=== PATIENT | male | born 1935 | race Caucasian/White ===

== ENCOUNTER → 2016-04-18 | Outpatient (CLI) | payer MEDICARE, OTHER ==
[2016-04-19 14:16] LABS: PSA TOTAL 11.5 ng/mL (0.0-4.0)
== END ==
LOC: M SMT 11:34
PROVIDERS: ATTEND Specialist
DX: R97.20 Elevated prostate specific antigen [PSA] (principal)
CPT/HCPCS: 36415; 84154; G0463

== ENCOUNTER → 2016-05-10 | Outpatient (CLI) | payer MEDICARE, OTHER ==
--- NOTE | 2016-05-10 11:22 | REP ---
Prostate sonography: History: Elevated PSA Sonographic findings: Trans rectal prostate sonography demonstrates unremarkable seminal vesicles. Prostate gland is heterogeneously enlarged with calcifications and cystic changes noted. Right-sided nodules are seen measuring 1.1, 1.1, and 0.9 cm. Left sided nodules are seen measuring 0.5, 1.0, and 0.6 cm. Glandular dimensions are measured at 4.9 x 3.5 x 5.4 cm with a calculated glandular volume of 48.4 ml. Transrectal sonographic guidance provided to Dr. Saavedra who performed trans rectal ultrasound guided needle biopsy procedure . Signed by Hadley Bundy MD 05/10/2016 11:14 A
== END ==
LOC: M SMT PRO 09:08
PROVIDERS: ATTEND Nurse Practitioner Women's Health
DX: C61 Malignant neoplasm of prostate (principal)
CPT/HCPCS: 55700; 76872; 76942; G0416

== ENCOUNTER → 2016-05-22 | Outpatient (CLI) | payer MEDICARE, OTHER ==
--- NOTE | 2016-05-22 09:57 | REP ---
Clinical: Prostate cancer. Preoperative assessment . Comparison: 07/16/2013 . Technique: PA and lateral. Findings: The mediastinum and cardiac silhouette are normal. The lung hannah are clear and without acute consolidation, effusion, or pneumothorax. The skeletal structures are intact and normal. Impression: 1. No acute cardiopulmonary process. Signed by Jamison Meléndez MD 05/22/2016 09:49 A
[2016-05-22 13:46] LABS: ANION GAP 4 MEQ/L (8-16); BLOOD UREA NITROGEN 21 MG/DL (7-18); CALCIUM LEVEL 10.1 MG/DL (8.8-10.2); CARBON DIOXIDE LEVEL 30 MEQ/L (21-32); CHLORIDE LEVEL 107 MEQ/L (98-107); CREATININE FOR GFR 0.93 MG/DL (0.70-1.30); GLOMERULAR FILTRATION RATE > 60.0 (>35); GLUCOSE, FASTING 107 MG/DL (83-110); POTASSIUM SERUM 4.1 MEQ/L (3.5-5.1); SODIUM LEVEL 141 MEQ/L (136-145)
--- NOTE | 2016-05-22 17:44 | REP ---
WHOLE-BODY BONE SCAN: 05/22/2016. Comparison: Chest x-ray 05/22/2016, CT abdomen and pelvis 01/19/2016. Clinical history: Prostate carcinoma. Findings: The patient received 22 mCi technetium 99m - MDP via an IV. Anterior and posterior whole body delayed, oblique anterior and posterior images of the pelvis and chest along with lateral views of the calvarium in the cervical region along with lateral knees and feet. There is a levoconvex curve upper thoracic spine. There are degenerative changes of the cervical and mid and lower thoracic and the lower lumbar spine with increased uptake in the left pedicle region of L4, although there was no sclerotic or destructive lesion in the L4 pedicle on CT. The SI joints were symmetric. Calvarium shows a small focus of activity at the vertex bilaterally on the anterior image of the calvarium and also seen on the lateral images over the parietal vertex suggesting some dural calcification or uptake. There is symmetric increased uptake at the glenohumeral joints, AC joints, sternoclavicular joints, anterior 1st ribs all in a symmetric fashion. Posterior elements of the thoracic and lower lumbar spine show some uptake as do hips and SI joints, knees and mid feet on both sides. I do not see abnormal long bone uptake. The paranasal sinuses show only minimal increased uptake as does the alveolar ridge of the mandible suggesting some sinus and dental disease. Impression: 1. Pattern of uptake consistent with degenerative changes. I do not see compelling scintigraphic evidence for bony metastatic disease. Signed by Myles Menard MD 05/22/2016 08:25 P
== END ==
LOC: M RAD 09:24 → M LAB 09:24
PROVIDERS: ATTEND Urology
DX: C61 Malignant neoplasm of prostate (principal)
CPT/HCPCS: 36415; 71020; 78306; 80048; A9503

== ENCOUNTER → 2016-05-24 | Outpatient (CLI) | payer MEDICARE, OTHER ==
[~2016-05-24] MED LIST: ISOVUE-370 76% 100ML VIAL (Q9967) As Ordered ONE
--- NOTE | 2016-05-24 18:10 | REP ---
Clinical: History of prostate cancer for follow up. Technique: Axial contrast enhanced images from the lung bases to the pubic symphysis using 100 ml Isovue 370 intravenous contrast material with precontrast and delayed images of the abdomen as well as coronal and sagittal re-formations. Comparison: 01/19/2016, 08/08/2008. Findings: Lung bases demonstrate chronic bibasilar fibroatelectatic changes. Visualized heart and pericardium stable and without pericardial effusion or cardiomegaly. Fatty infiltration of the liver is appreciated without focal hepatic lesion. Spleen demonstrates 4.6 cm and 1.9 cm hyperenhancing cavernous hemangiomas. The patient is status post cholecystectomy. Pancreas, bilateral adrenal glands and kidneys are relatively normal / stable. Small bilateral renal cysts noted along with 2 mm nonobstructing right renal calculus and no evidence for hydronephrosis. The enteric system is without obstruction or acute inflammatory process. Pelvis demonstrates normal bladder prostate gland is heterogeneous and mildly enlarged measuring up to 5.4 cm transverse diameter and essentially unchanged from 2016. No ascites. No free air. No intraperitoneal or retroperitoneal adenopathy. Surrounding musculoskeletal structures demonstrate age-related degenerative changes without focal osseous abnormality. Impression: 1. 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 2. A 2 mm nonobstructing right renal calculus and small bilateral renal cysts. 3. Heterogeneous mildly enlarged prostate gland unchanged. 4. No ascites, adenopathy, or abdominopelvic mass lesion. 5. 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 Signed by Jamison Meléndez MD 05/24/2016 06:01 P
== END ==
LOC: M RAD 16:15
PROVIDERS: ATTEND Urology
DX: C61 Malignant neoplasm of prostate (principal); D18.09 Hemangioma of other sites; N20.0 Calculus of kidney; N28.1 Cyst of kidney, acquired; N40.0 Benign prostatic hyperplasia without lower urinary tract symptoms; J98.4 Other disorders of lung
CPT/HCPCS: 74178; Q9967

== ENCOUNTER → 2016-06-12 | Outpatient (CLI) | payer MEDICARE, OTHER | LOC: M WUC 12:59 | PROVIDERS: ATTEND Urology | DX: C61 Malignant neoplasm of prostate (principal) ==

== ENCOUNTER → 2016-06-27 | Outpatient (CLI) | payer MEDICARE, OTHER ==
--- NOTE | 2016-07-03 09:51 | RADONC ---
RADIATION ONCOLOGY CONSULTATION NOTE DATE: 06/27/2016 CHART NUMBER: [id number]. DIAGNOSIS: Prostate cancer. STAGE: IIB, [id number] ECOG PERFORMANCE STATUS: 0 CONSULTATION NOTE: Mr. 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 HISTORY OF PRESENT ILLNESS: The patient was in his usual state of health but was found to have a rising PSA level which reached 11.5 on 04/18/2016. On 05/10/2016 the patient underwent prostatic needle biopsy and pathology revealed a Euclid score 9 (4-5) adenocarcinoma of prostate involving almost every core sampled. He initiated his androgen deprivation therapy with a shot of Lupron. He is now presenting for consideration of definitive external beam radiation therapy with IMRT/IGRT. PAST MEDICAL HISTORY: The patient's past medical history is positive for diabetes and hypothyroidism. He has high triglycerides as well. ALLERGIES: The patient is allergic to LIPITOR and NIACIN. SOCIAL HISTORY: The patient quit smoking 25 years ago. He had smoked one pack of cigarettes per day for 15 years. He does not abuse alcohol. FAMILY HISTORY: The patient's family history is positive for a sister with bone cancer and another sister with breast cancer. REVIEW OF SYSTEMS: The patient's review of systems is positive for some hearing loss, occasional shortness of breath, difficulty chewing, anxiety and weight loss. He has some weakness in his arms and legs as well as some decreased energy. He has occasional constipation as well. He denies nausea, vomiting, fevers, chills, night sweats, diplopia, headaches, chest pain or neurological problems. PHYSICAL EXAMINATION: The patient is a well-developed, well-nourished male in no acute distress. HEENT exam is normocephalic, atraumatic. Extraocular movements are intact. There is no palpable cervical, supraclavicular, infraclavicular, axillary, or inguinal lymphadenopathy present. Lungs are clear to auscultation and percussion. Heart has a regular rate and rhythm. Abdomen is benign with no hepatosplenomegaly, masses, or tenderness. Rectal examination reveals a normal anal sphincter tone. His prostate is smooth with no evidence of nodularity. Skeletal examination reveals no tenderness to pressure or percussion of the bony skeleton. Extremities reveal no clubbing, cyanosis, or edema. Neurologic exam is grossly intact as is the remainder of the physical examination. MEDICAL NECESSITY: IMRT/IGRT is clinically indicated for the highly conformal dose planning required. The target volume is in close proximity to critical structures, such as the rectum, bladder, small bowel, and femoral heads. The volume of interest must be covered with narrow margins to adequately protect immediately adjacent structures. The plan requires interpretation of complex testing such as CT localization. As noted above, special planning (IMRT) and localizing (IGRT) is required and essential to maximally protect sensitive normal tissue structures which cannot be accomplished using conventional 3-dimensional planning. ASSESSMENT: Clearly, Mr. Sheffield is a candidate for definitive external beam radiation therapy with IMRT/IGRT and I have so informed him. I have discussed with the patient in detail the potential benefits as well as possible acute and chronic sequelae of external beam radiation therapy. We have discussed the logistics of treatment planning, simulation and subsequent fractionated daily radiation treatments. In light of the aggressive nature of his disease, we will be treating his lymph nodes as well. This will bring the dose to the small bowel higher. Therefore, IMRT is needed to maintain all structures, especially the small bowel within their tolerance limits. Image guided radiation will be needed on a daily basis as well to maintain the high dose levels needed to control this disease which are within close proximity to critical structures such as the bladder, rectum, and small bowel, as well as the femoral heads. I have scheduled the patient for the next available simulation slot following placement of his fiducial markers. Radiation treatments will follow. Thank you for allowing us to participate in the care of this very pleasant gentleman. If I could be of any further assistance or provide you with any information, please free to contact me at any time. cc: Juancarlos Couch Jr, MD Alejandro Rodriguez, MD
== END ==
LOC: M ONCR 09:14
PROVIDERS: ATTEND Radiology Radiation Oncology
DX: C61 Malignant neoplasm of prostate (principal)

== ENCOUNTER → 2016-07-05 | Outpatient (CLI) | payer MEDICARE, OTHER ==
--- NOTE | 2016-07-05 17:31 | REP ---
TRANSRECTAL PROSTATE ULTRASOUND GUIDANCE FOR FIDUCIARY MARKER PLACEMENT: Transrectal ultrasound guidance was provided for Dr. Saavedra who placed 6 fiduciary markers in the region of the prostate. Signed by Jordan Mascorro MD 07/05/2016 05:41 P
== END ==
LOC: M SMT 09:43
PROVIDERS: ATTEND Urology
DX: C61 Malignant neoplasm of prostate (principal)
CPT/HCPCS: 55876; 76872; A4648

== ENCOUNTER 2016-07-23 10:40 | Outpatient (RCR) | payer MEDICARE, OTHER | END 2016-07-28 | LOC: M ONCR 10:40 | PROVIDERS: ATTEND Radiology Radiation Oncology | DX: C61 Malignant neoplasm of prostate (principal) ==

== ENCOUNTER → 2016-07-23 | Outpatient (CLI) | payer MEDICARE, OTHER ==
[2016-07-23 09:24] LABS: MEAN CORPUSCULAR HEMOGLOBIN 32.4 pg (27.0-33.0); MEAN CORPUSCULAR HGB CONC 36.2 g/dl (32.0-36.5); MEAN CORPUSCULAR VOLUME 89.5 fl (80.0-96.0); RED CELL DISTRIBUTION WIDTH 14.9 % (11.5-14.5); WHITE BLOOD COUNT 6.4 K/mm3 (4.0-10.0)
== END ==
LOC: M RAD 08:31
PROVIDERS: ATTEND Radiology Radiation Oncology
DX: C61 Malignant neoplasm of prostate (principal)

== ENCOUNTER 2016-07-29 09:20 | Outpatient (RCR) | payer MEDICARE, OTHER ==
--- NOTE | 2016-08-06 08:23 | RADONC ---
RADIATION ONCOLOGY PROGRESS NOTE DATE: 08/05/2016 CHART NUMBER: [id number] Mr. Sheffield is presently at a dose of 540 cGy to his prostate and is tolerating treatments quite well at this point with no complaints related to his radiation therapy. He is having no urinary or bowel difficulties and no bone pain. The patient's review of systems is noncontributory. He denies nausea, vomiting, fevers, chills, night sweats, diplopia, headaches, anxiety or depression, anorexia, weight loss, visual disturbances, chest pain, urinary or bowel difficulties, bone pain, or neurological problems. PHYSICAL EXAMINATION: The patient's skin is in good condition with no evidence of radiation change present. There is no moist or dry desquamation. The remainder of his physical exam remains unchanged. Mr. Sheffield is tolerating treatments quite well and radiation will continue as scheduled.
--- NOTE | 2016-08-13 10:12 | RADONC ---
RADIATION ONCOLOGY PROGRESS NOTE DATE: 08/12/2016 CHART NUMBER: [id number] Mr. Sheffield is presently a dose of 1440 cGy to his prostate and is tolerating treatments quite well at this point with no significant difficulties related to his radiation therapy. The patient reports that he initially had constipation the first several days of treatment, but then it went into diarrhea. He described four bowel movements which were watery today. REVIEW OF SYSTEMS: The patient's review of systems is positive for loose bowel movements, but is otherwise noncontributory. He denies nausea, vomiting, fevers, chills, night sweats, diplopia, headaches, anxiety or depression, anorexia, weight loss, visual disturbances, chest pain, urinary or bowel difficulties, bone pain or neurological problems. PHYSICAL EXAMINATION: The patient's skin is in good condition with no evidence of radiation change present. There is no moist or dry desquamation. The remainder of his physical exam remains unchanged. Mr. Sheffield is tolerating treatments quite well and radiation will continue as scheduled.
--- NOTE | 2016-08-20 07:51 | RADONC ---
RADIATION ONCOLOGY PROGRESS NOTE DATE: 08/19/2016 CHART NUMBER: [id number] Mr. Sheffield is presently at a dose of 2340 cG6 to his prostate and is tolerating treatments quite well at this point with no significant difficulties related to his radiation therapy. He is having no urinary or bowel difficulties other than some loose bowel movements. He has no bone pain. REVIEW OF SYSTEMS: The patient's review of systems is noncontributory. Denies nausea, vomiting, fevers, chills, night sweats, diplopia, headaches, anxiety or depression, anorexia, weight loss, visual disturbances, chest pain, urinary or bowel difficulties, bone pain, or neurological problems. PHYSICAL EXAMINATION: The patient's skin is in good condition with no evidence of radiation change present. The remainder of his physical exam remains unchanged as well. Mr. Sheffield is tolerating treatments quite well and radiation will continue as scheduled.
--- NOTE | 2016-08-28 08:03 | RADONC ---
RADIATION ONCOLOGY PROGRESS NOTE DATE: 08/27/2016 CHART NUMBER: [id number] Mr. Sheffield is presently at a dose of 3240 cGy to his prostate and is tolerating treatments quite well at this point with no complaints related to his radiation therapy. He is having no urinary or bowel difficulties. No bone pain. REVIEW OF SYSTEMS: The patient's review of systems is noncontributory. Denies nausea, vomiting, fevers, chills, night sweats, diplopia, headaches, anxiety or depression, anorexia, weight loss, visual disturbances, chest pain, urinary or bowel difficulties, bone pain, or neurological problems. PHYSICAL EXAMINATION: The patient's skin is in good condition with no evidence of radiation change present. There is no moist or dry desquamation. The remainder of his physical exam remains unchanged. Mr. Sheffield is tolerating treatments quite well and radiation will continue as scheduled.
== END 2016-08-28 ==
LOC: M ONCR 09:20
PROVIDERS: ATTEND Radiology Radiation Oncology
DX: C61 Malignant neoplasm of prostate (principal)

== ENCOUNTER → 2016-08-16 | Outpatient (REF) | payer MEDICARE, OTHER ==
[2016-08-16 19:48] LABS: FOLATE 7.8 NG/ML
== END ==
LOC: M LAB REF 17:26
PROVIDERS: ATTEND Internal Medicine
DX: D64.9 Anemia, unspecified (principal)

== ENCOUNTER 2016-08-29 09:49 | Outpatient (RCR) | payer MEDICARE, OTHER ==
--- NOTE | 2016-09-04 10:10 | RADONC ---
RADIATION ONCOLOGY PROGRESS NOTE: DATE: 09/03/2016 CHART NO: [id number] Mr. Sheffield is presently at a dose of 4140 cGy to his prostate and is tolerating treatments quite well at this point with no complaints related to his radiation therapy. He is having no urinary or bowel difficulties and no bone pain. REVIEW OF SYSTEMS: The patient's review of systems is noncontributory. Denies nausea, vomiting, fevers, chills, night sweats, diplopia, headaches, anxiety or depression, anorexia, weight loss, visual disturbances, chest pain, urinary or bowel difficulties, bone pain, or neurological problems. PHYSICAL EXAMINATION: The patient's skin is in good condition with no evidence of moist or dry desquamation. The remainder of his physical exam remains unchanged. Mr. Sheffield is tolerating his treatments quite well and radiation will continue as scheduled. MTDD
--- NOTE | 2016-09-10 07:43 | RADONC ---
RADIATION ONCOLOGY PROGRESS NOTE DATE: 09/09/2016 CHART NUMBER: [id number] Mr. Sheffield is thus far at a dose of 4680 cGy to his prostate. I received a phone call today from the patient saying he has watery diarrhea. He has no other symptoms related to his radiation therapy or disease. I had a lengthy discussion with this patient and he is going to take a break until . He has not been using any Imodium or been following his dietary restrictions I had given him in the past. He reports that when he took an Imodium the last time he became constipated. Once again, I have given him dietary instructions and have instructed him to try Imodium. I have also instructed him to use Gatorade for any electrolyte abnormalities. He reports that he has had four bowel movements today. We will continue to follow him and radiation should resume in a few days.
--- NOTE | 2016-09-17 08:22 | RADONC ---
RADIATION ONCOLOGY PROGRESS NOTE: DATE: 09/16/2016 CHART NUMBER: [id number]. PROGRESS NOTE: Mr. Sheffield is presently a dose of 4860 cGy to his prostate and is tolerating treatments quite well at this point with no complaints related to his radiation therapy. He is having no urinary or bowel difficulties and no bone pain. REVIEW OF SYSTEMS: The patient's review of systems is noncontributory. Denies nausea, vomiting, fevers, chills, night sweats, diplopia, headaches, anxiety or depression, anorexia, weight loss, visual disturbances, chest pain, urinary or bowel difficulties, bone pain, or neurological problems. PHYSICAL EXAMINATION: The patient's skin is in good condition with no evidence of radiation change present. There is no moist dry desquamation. The remainder of his physical exam remains unchanged. Mr. Sheffield is tolerating treatments quite well and radiation will continue as scheduled.
--- NOTE | 2016-09-24 08:00 | RADONC ---
RADIATION ONCOLOGY PROGRESS NOTE: DATE: 09/23/2016 CHART NUMBER: PROGRESS NOTE: Mr. Sheffield is presently at a dose of 5580 cGy to his prostate and is tolerating treatments quite well at this point with no significant difficulties related to his radiation therapy. He does report some continued loose bowel movements. REVIEW OF SYSTEMS: The patient's review of systems is positive for loose bowel movements but is otherwise noncontributory. Denies nausea, vomiting, fevers, chills, night sweats, diplopia, headaches, anxiety or depression, anorexia, weight loss, visual disturbances, chest pain, urinary or bowel difficulties, bone pain, or neurological problems. PHYSICAL EXAMINATION: The patient's skin is in good condition with no evidence of radiation change present. There is no moist or dry desquamation. The remainder of his physical exam remains unchanged. Mr. Sheffield is tolerating treatments quite well and radiation will continue as scheduled.
== END 2016-09-27 ==
LOC: M ONCR 09:49
PROVIDERS: ATTEND Radiology Radiation Oncology
DX: C61 Malignant neoplasm of prostate (principal)

== ENCOUNTER → 2016-09-25 | Outpatient (CLI) | payer MEDICARE, OTHER ==
[~2016-09-25] MED LIST changes: +DITR1TAB PO; +DITR5TAB PO; +FENO145T PO; +FLOM5CAP PO; -ISOVUE-370 76% 100ML VIAL (Q9967) As Ordered ONE; +JANU100T PO; +LEVO75TA4 PO; +METF500T4 PO; +NORC1TAB4 PO; +NORCOTAB PO; +PARO20TA3 PO; +RISP0.2516 PO; +ROSU10TA2 PO
--- NOTE | 2016-09-25 09:59 | REP ---
Clinical: Right-sided chest pain . Comparison: 11/19/2016 . Technique: PA and lateral. Findings: The mediastinum and cardiac silhouette are normal. The lung hannah demonstrate chronic stable changes without acute consolidation, effusion, or pneumothorax. The skeletal structures are intact and normal. Impression: 1. No acute cardiopulmonary process. Signed by Jamison Meléndez MD 09/25/2016 09:50 A
== END ==
LOC: M WUC 09:27
PROVIDERS: ATTEND Nurse Practitioner Family
DX: R07.9 Chest pain, unspecified (principal)

== ENCOUNTER 2016-10-02 08:33 | Outpatient (RCR) | payer MEDICARE, OTHER ==
--- NOTE | 2016-10-04 10:27 | RADONC ---
RADIATION ONCOLOGY DATE: 10/02/2016 CHART NUMBER: [id number] Mr. Sheffield is presently at a dose of 6480 cGy to his prostate and is tolerating treatments quite well at this point with no significant complaints make that related to his radiation therapy. He is having no significant urinary or bowel difficulties and no bone pain. REVIEW OF SYSTEMS: The patient's review of systems is noncontributory. He denies nausea, vomiting, fevers, chills, night sweats, diplopia, headaches, anxiety or depression, anorexia, weight loss, visual disturbances, chest pain, urinary or bowel difficulties, bone pain, or neurological problems. PHYSICAL EXAMINATION: The patient's skin is in good condition with no evidence of moist or dry desquamation. The remainder of his physical exam remains unchanged. Mr. Sheffield is tolerating treatments quite well and radiation will continue as scheduled.
--- NOTE | 2016-10-07 15:33 | RADONC ---
RADIATION ONCOLOGY PROGRESS NOTE DATE: 10/07/2016 CHART NUMBER: [id number] Mr. Sheffield is presently at a dose of 7020 cGy to his prostate and is tolerating treatments quite well at this point with no significant difficulties related to his radiation therapy. He is having no urinary problems. He reports some continued constipation. He is having no bone pain. The patient's review of systems is positive for some constipation but is otherwise noncontributory. He denies nausea, vomiting, fevers, chills, night sweats, diplopia, headaches, anxiety or depression, anorexia, weight loss, visual disturbances, chest pain, urinary or bowel difficulties, bone pain, or neurological problems. PHYSICAL EXAMINATION: The patient's skin is in good condition with no evidence of moist or dry desquamation. The remainder of his physical exam remains unchanged. Mr. Sheffield is tolerating treatments quite well and radiation will continue as scheduled.
--- NOTE | 2016-10-15 06:38 | RADONC ---
RADIATION ONCOLOGY PROGRESS NOTE: DATE: 10/14/2016 CHART NUMBER: [id number]. PROGRESS NOTE: Mr. Sheffield is presently a dose of 7840 cGy to his prostate and is tolerating treatments quite well at this point with no significant difficulties related to his radiation therapy other than his continued issue with a combination of diarrhea and constipation. Other than that the patient has no complaints related to his radiation therapy. REVIEW OF SYSTEMS: The patient's review of systems is positive for diarrhea and constipation but is otherwise noncontributory. Denies nausea, vomiting, fevers, chills, night sweats, diplopia, headaches, anxiety or depression, anorexia, weight loss, visual disturbances, chest pain, urinary or bowel difficulties, bone pain, or neurological problems. PHYSICAL EXAMINATION: The patient's skin is in good condition with no evidence of moist or dry desquamation. The remainder of his physical exam remains unchanged. Mr. Sheffield is tolerating treatments quite well and radiation will continue as scheduled.
[2016-10-15] MEDS ORDERED: PARO20TA3 PO (17:22)
[2016-10-15] MEDS ORDERED: LEVO75TA4 PO (17:22)
[2016-10-15] MEDS ORDERED: FENO145T PO (17:22)
[2016-10-15] MEDS ORDERED: JANU100T PO (17:22)
[2016-10-15] MEDS ORDERED: ROSU10TA2 PO (17:22)
[2016-10-15] MEDS ORDERED: METF500T4 PO (17:22)
[2016-10-15] MEDS ORDERED: FLOM5CAP PO (17:22)
[2016-10-15] MEDS ORDERED: NORCOTAB PO (22:18)
--- NOTE | 2016-10-16 10:17 | RADONC ---
RADIATION ONCOLOGY TREATMENT SUMMARY: DATE: 10/16/2016 CHART NUMBER: [id number] DIAGNOSIS: Prostate cancer. STAGE: II B, [id number] ECOG PERFORMANCE STATUS: 3 Mr. Sheffield is an 81-year-old white male with the diagnosis of what appears to be an aggressive Roberth score 9 (4-5), stage II B, [id number] adenocarcinoma of the prostate with a PSA level of 11.5 who presented for consideration of definitive external beam radiation therapy with IMRT/IGRT. We treated the patient to his prostate for a total dose of 7840 cGy delivered in 43 fractions of 180 cGy each over 74 elapsed days from 08/01/2016 through 10/14/2016. The patient's prostate was treated on a linear accelerator utilizing a 6 MV photon beam via IMRT/IGRT. We initially treated the prostate, seminal vesicles and first echelon of lymph nodes for a dose of 4500 cGy in 25 fractions of 180 cGy each. We subsequently coned down to the prostate and seminal vesicles for an additional 900 cGy bringing the seminal vesicles to a total dose of 5400 cGy. Following completion of that further radiation was given to the prostate, once again bringing it to a total dose of 7840 cGy. We initially planned on delivering an extra fraction of radiation to bring a total to the prostate 7920. Unfortunately, prior to the last day of treatment, the patient reports that he pulled a muscle in his back and was unable to come in for that final radiation treatment. He did present to the emergency room where a CT scan was done but showed no evidence of disease. He was sent home with pain medication. We spoke to the patient today and asked whether or not he would like that final treatment but said he did not think he was able to leave the house. In light of his overall condition, we have discontinued his final fraction at this point. The patient is scheduled see me again in routine followup in 1 month and will continue to be followed by his other physicians in the meantime. cc: Juancarlos Couch Jr, MD Alejandro Rodriguez, MD
[2016-10-16] MEDS ORDERED: NORC1TAB4 PO (22:15)
[2016-10-24] MEDS ORDERED: DITR5TAB PO (07:02)
[2016-10-24] MEDS ORDERED: RISP0.2516 PO (07:07)
[2016-10-24] MEDS ORDERED: DITR1TAB PO (07:07)
== END 2016-10-28 ==
LOC: M ONCR 08:33
PROVIDERS: ATTEND Radiology Radiation Oncology
DX: C61 Malignant neoplasm of prostate (principal)

== ENCOUNTER 2016-10-15 17:00 | Emergency (ER) | payer MEDICARE, OTHER ==
[~2016-10-15] VITALS: Ht 180.3 cm; Wt 97.7 kg
[2016-10-15] MEDS ORDERED: FENO145T PO (17:22)
[2016-10-15] MEDS ORDERED: PARO20TA3 PO (17:22)
[2016-10-15] MEDS ORDERED: LEVO75TA4 PO (17:22)
[2016-10-15] MEDS ORDERED: ROSU10TA2 PO (17:22)
[2016-10-15] MEDS ORDERED: FLOM5CAP PO (17:22)
[2016-10-15] MEDS ORDERED: JANU100T PO (17:22)
[2016-10-15] MEDS ORDERED: METF500T4 PO (17:22)
[2016-10-15 18:24] LABS: BASO % 0.5 % (0.0-1.0); EOS # 0.1 K/mm3 (0.0-0.50); EOS % 1.4 % (0.0-3.0); LARGE UNSTAINED CELL # 0.2 K/mm3 (0.0-0.4); LARGE UNSTAINED CELL % 1.9 % (0.0-4.0); LYMPH # 1.2 K/mm3 (1.5-4.5); LYMPH % 9.7 % (24.0-44.0); MEAN CORPUSCULAR HEMOGLOBIN 31.3 pg (27.0-33.0); MEAN CORPUSCULAR HGB CONC 36.1 g/dl (32.0-36.5); MEAN CORPUSCULAR VOLUME 86.6 fl (80.0-96.0); MONO # 0.6 K/mm3 (0.0-0.8); NEUTROPHILS % 80.5 % (36.0-66.0); PLATELET COUNT, AUTOMATED 203 k/mm3 (150-450); RED CELL DISTRIBUTION WIDTH 15.1 % (11.5-14.5)
[2016-10-15 18:34] LABS: ALBUMIN 4.2 GM/DL (3.2-5.2); ALBUMIN/GLOBULIN RATIO 1.31 (1.00-1.93); ALKALINE PHOSPHATASE 44 U/L (45-117); ALT/SGPT 36 U/L (12-78); ANION GAP 7 MEQ/L (8-16); AST/SGOT 35 U/L (15-37); BILIRUBIN,DIRECT 0.2 MG/DL (0.0-0.2); BILIRUBIN,TOTAL 0.8 MG/DL (0.2-1.0); BLOOD UREA NITROGEN 21 MG/DL (7-18); CALCIUM LEVEL 10.8 MG/DL (8.8-10.2); CARBON DIOXIDE LEVEL 25 MEQ/L (21-32); CHLORIDE LEVEL 101 MEQ/L (98-107); CREATININE FOR GFR 0.96 MG/DL (0.70-1.30); GLOMERULAR FILTRATION RATE > 60.0 (>35); GLUCOSE, FASTING 157 MG/DL (83-110); POTASSIUM SERUM 4.1 MEQ/L (3.5-5.1); SODIUM LEVEL 133 MEQ/L (136-145); TOTAL PROTEIN 7.4 GM/DL (6.4-8.2)
[2016-10-15] MEDS ORDERED: NS 500 ML IV ONE (19:45)
[2016-10-15] MEDS ORDERED: ISOVUE-370 76% 100ML VIAL (Q9967) As Ordered ONE (20:03)
--- NOTE | 2016-10-15 22:00 | REPUSA ---
CT of the abdomen and pelvis with contrast Clinical statement: Pain. Technique: Multiple axial CT images were obtained from the base of the lungs through the floor of the pelvis utilizing 5 mm axial slices after administration of nonionic intravenous contrast. Coronal an d sagittal reconstructions were also obtained. Comparison: 05/24/2016. Findings: Chest: The visualized lung bases demonstrate linear atelectasis bilaterally. Abdomen: The pancreas, kidneys, and adrenal glands are unremarkable. There is a peripherally enhancin g mass spleen measuring 4.6 x 4.1 cm, with central area of low attenuation. Several smaller hypodense enhancing lesions are seen within the spleen as well. There is mild diffuse low attenuation of the l iver. No focal hepatic masses are seen. The aorta is within normal limits. There is no evidence of ab dominal lymphadenopathy or ascites. Pelvis: The bowel is unremarkable, with no obstructive or inflammatory changes. The urinary bladder i s within normal limits. The prostate demonstrates metallic surgical seeds. There is no evidence of pe lvic lymphadenopathy or ascites. Bones: There are no suspicious osseous abnormalities seen. Impression: 1. No acute abnormality to explain the patient's pain. 2. No obstructive or inflammatory bowel changes. 3. Multiple enhancing masses within the spleen. These are stable since the prior study, and likely re present hemangiomas. Follow-up is recommended as clinically indicated. 4. Mild fatty infiltration of the liver. 5. Stable postsurgical changes within the prostate.
[2016-10-15] MEDS ORDERED: NORCOTAB PO (22:18)
[2016-10-15 22:23] VITALS: BP 162/95
[2016-10-15] MEDS ORDERED: NORCO, ANEXSIA 5/325MG TABLET (HYDROcodone/ACETAMINOPHEN) PO ONE (22:30)
[2016-10-16] MEDS ORDERED: NORC1TAB4 PO (22:15)
== END 2016-10-15 22:38 | disposition home or self-care (01) ==
LOC: M ED 17:00
DX: R10.31 Right lower quadrant pain (principal); K59.00 Constipation, unspecified; E11.9 Type 2 diabetes mellitus without complications; E78.5 Hyperlipidemia, unspecified; N40.0 Benign prostatic hyperplasia without lower urinary tract symptoms; E03.9 Hypothyroidism, unspecified; F41.9 Anxiety disorder, unspecified; R16.1 Splenomegaly, not elsewhere classified; K76.0 Fatty (change of) liver, not elsewhere classified; Z98.890 Other specified postprocedural states; Z87.891 Personal history of nicotine dependence; Z98.0 Intestinal bypass and anastomosis status
CPT/HCPCS: 36415; 74177; 80048; 80076; 81001; 83605; 83690; 85025; 87086; 99283; Q9967

== ENCOUNTER 2016-10-16 19:15 | Inpatient (IN) | payer MEDICARE, OTHER ==
[~2016-10-16] VITALS: Ht 170.2 cm; Wt 98.4 kg
[~2016-10-16 19:15] MED LIST changes: -DITR1TAB PO; -DITR5TAB PO; -NORC1TAB4 PO; -RISP0.2516 PO
[2016-10-16] MEDS: SENOKOT S TAB PO SCH (21:00)
[2016-10-16] MEDS: ROSUVASTATIN 10 MG TAB (CRESTOR) PO SCH (21:00)
[2016-10-16] MEDS ORDERED: NS 500 ML IV ONE ×2 (21:30→23:45)
[2016-10-16 21:58] LABS: ABG BASE EXCESS -1.9 (-2.0-2.0); ABG HCO3 22.3 MEQ/L (22.0-26.0); ABG PARTIAL PRESSURE CO2 36.3 mmHg (35.0-45.0); ABG PARTIAL PRESSURE O2 67.1 mmHg (75.0-100.0); ABG STANDARD HCO3 22.8 MEQ/L (22.0-26.0); ABG TOTAL CO2 23.4 MEQ/L (23.0-31.0); ABG pH (ARTERIAL) 7.406 UNITS (7.350-7.450)
[2016-10-16 22:11] LABS: BASO % 0.6 % (0.0-1.0); EOS # 0.1 K/mm3 (0.0-0.50); EOS % 1.2 % (0.0-3.0); LARGE UNSTAINED CELL # 0.2 K/mm3 (0.0-0.4); LARGE UNSTAINED CELL % 1.9 % (0.0-4.0); LYMPH # 0.7 K/mm3 (1.5-4.5); MEAN CORPUSCULAR HEMOGLOBIN 31.8 pg (27.0-33.0); MEAN CORPUSCULAR VOLUME 88.3 fl (80.0-96.0); MONO # 0.5 K/mm3 (0.0-0.8); MONO % 5.3 % (0.0-5.0); NEUTROPHILS # 7.3 K/mm3 (1.8-7.7); NEUTROPHILS % 82.9 % (36.0-66.0); PLATELET COUNT, AUTOMATED 171 k/mm3 (150-450); RED CELL DISTRIBUTION WIDTH 14.8 % (11.5-14.5); WHITE BLOOD COUNT 8.8 K/mm3 (4.0-10.0)
[2016-10-16] MEDS ORDERED: NORC1TAB4 PO (22:15)
[2016-10-16 22:25] LABS: OSMOLALITY SERUM 289 MOSM/KG (280-301)
[2016-10-16 22:32] LABS: ALBUMIN 4.2 GM/DL (3.2-5.2); ALKALINE PHOSPHATASE 45 U/L (45-117); ALT/SGPT 39 U/L (12-78); ANION GAP 9 MEQ/L (8-16); AST/SGOT 50 U/L (15-37); BILIRUBIN,DIRECT 0.3 MG/DL (0.0-0.2); BILIRUBIN,TOTAL 1.2 MG/DL (0.2-1.0); BLOOD UREA NITROGEN 21 MG/DL (7-18); CALCIUM LEVEL 10.6 MG/DL (8.8-10.2); CARBON DIOXIDE LEVEL 26 MEQ/L (21-32); CHLORIDE LEVEL 101 MEQ/L (98-107); CREATININE FOR GFR 1.01 MG/DL (0.70-1.30); GLOMERULAR FILTRATION RATE > 60.0 (>35); GLUCOSE, FASTING 122 MG/DL (83-110); POTASSIUM SERUM 3.9 MEQ/L (3.5-5.1); SODIUM LEVEL 136 MEQ/L (136-145); TOTAL PROTEIN 7.2 GM/DL (6.4-8.2)
--- NOTE | 2016-10-16 22:40 | REPUSA ---
CT of the head Clinical history: altered mental status. Technique: Multiple axial CT images were obtained through the head without administration of contrast . Findings: The ventricles and sulci are symmetric bilaterally. There is no evidence of acute hemorrhag e or infarct. There is no midline shift, mass effect, or extra-axial fluid collection. The osseous st ructures are unremarkable. The visualized paranasal sinuses and mastoid air cells are clear. Impression: Negative study.
[2016-10-16 23:56] LABS: T UPTAKE 34 % (33-40); THYROXINE (T4) 11.2 UG/DL (4.5-12.0)
[2016-10-17] MEDS ORDERED: LORazepam 2 MG/ML VIAL (J2060) IV STA (00:01)
[2016-10-17] MEDS ORDERED: NORCO, ANEXSIA 5/325MG TABLET (HYDROcodone/ACETAMINOPHEN) PO PRN (01:00)
[2016-10-17] MEDS ORDERED: ONDANSETRON 4 MG TAB (S0181) PO PRN (01:00)
[2016-10-17] MEDS ORDERED: GLUCAGON FOR INJ 1 MG VIAL (J1610) SC PRN (01:15)
[2016-10-17] MEDS ORDERED: GLUCOSE 4 GM CHEW TABLET PO PRN (01:15)
[2016-10-17] MEDS ORDERED: DEXTROSE 50% 50 ML SYRINGE IV PRN (01:15)
[2016-10-17] MEDS: NS 1,000 ML IV SCH ×3 (01:22→20:02)
[2016-10-17] MEDS ORDERED: METAL LOCK LOOP XX ONE (01:39)
[2016-10-17 02:55] VITALS: BP 128/84
--- NOTE | 2016-10-17 03:15 | HPEPDOC ---
General Date of Admission Oct 17, 2016 at 01:27 Primary Care Physician: Jr Couch Collins Other Providers Radiation Oncologist: Dr. Bain Urologist: Dr. Saavedra Attending Physician: RICHMOND MCCARTNEY MD Chief Complaint The patient is a 81-year-old male admitted with a reason for visit of Abdominal Pain. Source: Patient, Family Exam Limitations: No limitations History of Present Illness Mr. Sheffield has presented to the emergency department twice in 2 days for the same complaint. He states that he has been suffering from severe fatigue, he has not been able to get a good night sleep for months, but this has become significantly worse in the past few weeks. It is important to note that he was found to have prostate cancer just a few months ago, and he has been receiving radiation therapy for the past 6-7 weeks and he has received 43 of his 44 scheduled radiation treatments to the prostate. He states that the reason why he cannot sleep is because he has to wake up and urinate every hour or every other hour during the night, he has discussed the option of placing a catheter with his PCP, who told him that this was not a good idea given that the area was currently being irradiated. In addition to his fatigue and poor sleep, he states that he has fallen twice recently, once a few weeks ago, and once last night. He did not lose consciousness, he did not hit his head, and he just believes that he was tired and fatigued and fell down. He is now suffering from some intermittent abdominal pain in the lower right quadrant which is described as sharp and stabbing, it is not always present, it only occurs if he positions himself in a certain manner, and it is only just begun since he fell last night. He also states that he has been suffering from nausea for the past few days, as well as decreased oral intake, he has been unable to eat at all, and he has not been taking any of his medications as prescribed. He was given some pain pills last night in the ED which she was hoping would help him fall asleep , but he believes that made him groggy and perhaps contributed to the reason of his fall last night. Home Medications Scheduled Fenofibrate (Fenofibrate) 145 Mg Tab, 145 MG PO DAILY, (Reported) Levothyroxine Sodium (Synthroid) 75 Mcg Tab, 75 MCG PO DAILY, (Reported) Metformin Hydrochloride (Metformin HCl ER) 500 Mg Tab, 500 MG PO QPM, (Reported) HAD CT SCAN ON 10/15, DIDN'T TAKE METFORMIN ON 10/16 Paroxetine (Paroxetine HCl) 20 Mg Tab, 20 MG PO DAILY, (Reported) Rosuvastatin Calcium (Rosuvastatin Calcium) 10 Mg Tab, 10 MG PO QHS, (Reported) Sitagliptin Phosphate (Januvia) 100 Mg Tab, 100 MG PO DAILY, (Reported) Tamsulosin Hydrochloride (Flomax) 0.4 Mg Cap, 0.8 MG PO QPM, (Reported) UNSURE OF LAST DOSE, DIDN'T TAKE ON 10/16 Scheduled PRN Acetaminophen/Hydrocodone (Paxton 5-325 mg) 1 Tab Tab, 1 TAB PO Q6H PRN for PAIN, (Reported) JUST HAD RX SENT TO PHARMACY FROM HERE LAST NIGHT 10/15 Allergies Coded Allergies: Atorvastatin (Verified Allergy, Unknown, 10/17/16) Gemfibrozil (Verified Allergy, Unknown, 10/17/16) Niacin (Verified Allergy, Unknown, 10/17/16) Past Medical History Medical History Hypercholesterolemia Diabetes mellitus type 2 Prostate cancer, with recent irradiation Depression Hypothyroidism Surgical History Colonoscopy 2013 History of right hemicolectomy for non-endoscopic resection of adenoma with anastomosis Hernia repair He thinks he may have had a cholecystectomy as well Family History His father was at the age of 49 from suicide. His mother was at the age of 51 from hypertension and stroke. He has 3 sons, one son suffers from prostatitis, another suffers from Tourette's and schizoaffective disorder. 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 No pets. Review of Symptoms Constitutional: Reports: Malaise, Weakness, Fatigue, Denies: Chills, Fever, Night Sweats Eyes: Denies: Pain, Vision change ENT: Denies: Head Aches, Ear Pain, Dysphagia Skin: Denies: Rash, Lesions, Breakdown Pulmonary: Denies: Dyspnea, Cough Cardiovascular: Denies: Chest Pain, Palpitations, Orthopnea, Paroxysmal Noc. Dyspnea, Lt Headedness Gastrointestinal: Denies: Nausea, Vomiting, Abdominal Pain, Diarrhea Genitourinary: Reports: Frequency, Retention (he is unsure if he has retention , but he only urinates a small amount at a time), Denies: Dysuria, Incontinence, Hematuria Hematologic: Denies: Bruising, Bleeding Excessively Musculoskeletal: Reports: Back Pain, Spasms (in the right lower quadrant) Neurological: Denies: Numbness, Change in speech, Confusion Psych: Reports: Mood Normal, Denies: Depression, Memory Issues Physical Examination General Exam: Positive: Alert, Cooperative, No Acute Distress Eye Exam: Positive: Conjunctiva & lids normal, EOMI, Negative: Sclera icteric ENT Exam: Positive: Atraumatic, Mucous membr. moist/pink, Pharynx Normal Neck Exam: Positive: Supple, Negative: JVD, thyromegaly Chest Exam: Positive: Clear to auscultation, Normal air movement Heart Exam: Positive: Rate Normal, Regular Rhythm, Normal S1, Normal S2, Negative: Murmurs, Rubs Telemetry: Positive: No significant arrhythmia Abdomen Exam: Positive: Normal bowel sounds, Soft, Negative: Tenderness (specifically, there is no tenderness to deep palpation , he states that his abdominal pain is only when he gets up and moves around), Hepatospenomegaly Extremity Exam: Positive: Normal pulses, Negative: Clubbing, Cyanosis, Edema Skin Exam: Positive: Nl turgor and temperature, Negative: Breakdown, Lesion Neuro Exam: Positive: Normal Speech, Cranial Nerves 3-12 NL Psych Exam: Positive: Mental status NL, Mood NL, Oriented x 3 Vital Signs Vital Signs Date Time Temp Pulse Resp B/P (MAP) Pulse Ox O2 Delivery O2 Flow Rate FiO2 10/17/16 02:05 98.2 16 10/17/16 02:00 90 94 Nasal Cannula 10/17/16 01:34 149/84 (105) Laboratory Data Labs 24H Laboratory Tests 2 10/16/16 21:32: Blood Gas Bicarbonate Standard 22.8, Arterial Blood pH 7.406, Arterial Blood Partial Pressure CO2 36.3, Arterial Blood Partial Pressure O2 67.1L, Arterial Blood Total CO2 23.4, Arterial Blood HCO3 22.3, Arterial Blood Base Excess -1.9 , Arterial Blood Oxygen Saturation 92.2L 10/16/16 21:33: Bedside Glucose (Misc Panel) 132H 10/16/16 21:50: White Blood Count 8.8, Red Blood Count 4.59, Hemoglobin 14.6, Hematocrit 40.5L, Mean Corpuscular Volume 88.3, Mean Corpuscular Hemoglobin 31.8, Mean Corpuscular Hemoglobin Concent 36.0, Red Cell Distribution Width 14.8H, Platelet Count 171, Neutrophils (%) (Auto) 82.9H, Lymphocytes (%) (Auto) 8.0L, Monocytes (%) (Auto) 5.3H, Eosinophils (%) (Auto) 1.2, Basophils (%) (Auto) 0.6 , Neutrophils # (Auto) 7.3, Lymphocytes # (Auto) 0.7L, Monocytes # (Auto) 0.5, Eosinophils # (Auto) 0.1, Basophils # (Auto) 0.0, Large Unclassified Cells % 1.9 , Large Unclassified Cells # 0.2, Anion Gap 9, Glomerular Filtration Rate > 60.0 , Osmolality 289, Lactic Acid Level 1.0, Calcium Level 10.6H, Aspartate Amino Transf (AST/SGOT) 50H, Alanine Aminotransferase (ALT/SGPT) 39, Alkaline Phosphatase 45, Total Bilirubin 1.2H, Direct Bilirubin 0.3H, Ammonia 22, Total Creatine Kinase 920H, Creatine Kinase MB 19.5H, Creatine Kinase MB Relative Index 2.11, Troponin I < 0.02, C-Reactive Protein, Quantitative < 0.30, Total Protein 7.2, Albumin 4.2, Albumin/Globulin Ratio 1.40, Thyroid Stimulating Hormone (TSH) 4.020H, Free Thyroxine Index 3.8, Thyroxine (T4) 11.2, Triiodothyronine (T3) Uptake 34, Salicylates Level < 1.7L, Acetaminophen Level < 2.0L, Ethyl Alcohol Level < 0.003 CBC/BMP Laboratory Tests 10/16/16 21:50 Red Blood Count 4.59, Mean Corpuscular Volume 88.3, Mean Corpuscular Hemoglobin 31.8, Mean Corpuscular Hemoglobin Concent 36.0, Red Cell Distribution Width 14.8 H, Neutrophils (%) (Auto) 82.9 H, Lymphocytes (%) (Auto) 8.0 L, Monocytes ( %) (Auto) 5.3 H, Eosinophils (%) (Auto) 1.2, Basophils (%) (Auto) 0.6, Neutrophils # (Auto) 7.3, Lymphocytes # (Auto) 0.7 L, Monocytes # (Auto) 0.5, Eosinophils # (Auto) 0.1, Basophils # (Auto) 0.0 Problems (1) At risk for dehydration due to poor fluid intake Status: Acute (2) Prerenal azotemia Status: Acute (3) Weakness Status: Acute (4) Elevated CK Status: Acute (5) Fatigue Status: Acute (6) Frequency of urination Status: Acute (7) Abdominal pain Status: Acute (8) Prostate cancer Status: Chronic (9) Hypothyroidism Status: Chronic (10) Hypercholesterolemia Status: Chronic (11) Diabetes mellitus type 2 in obese Status: Chronic Plan / VTE VTE Prophylaxis Ordered?: Yes (Lovenox) Plan Plan The patient seems to be suffering from fatigue and malaise secondary to inability to sleep from frequent urination and suspected urinary retention associated with prostate cancer and radiation. I also suspect that his fatigue and malaise is further exacerbated by his inability to eat, and his constant nausea. He is receiving 1 L bolus of normal saline in the ED, we will continue to give him fluid rehydration as well. Zofran has been ordered for his nausea, he may have a consistent carbohydrate diet, but if he continues to be nauseated , perhaps she will be able to stomach at least and ensure with every meal. Her repeat total CK has been ordered for the morning, we will also cycle cardiac markers as well. Given that he has had a recent urinary radiation of the prostate, placing a Salmon does not seem like a good idea as tissue is likely friable in that area. His bladder does not appear particularly distended on CT of the abdomen with contrast which he had performed yesterday in the emergency department, therefore we will order a bladder scan at this time, and provide him with a bedside urinal. A urinalysis has been ordered. Just be safe, and MRI of the lumbar spine has been ordered given that his fall a few weeks ago did precede his current state of malaise and weakness, we just want to be safe and rule out any sort of metastases. Orthostatic vital signs have been ordered. We will also have physical therapy evaluate and treat him as necessary. GME ATTESTATION GME ATTESTATION My preceptor for this patient encounter was physically present in the building during the encounter and was fully available. As needed, all aspects of the patient interview, examination, medical decision making process, and medical care plan development were reviewed and approved by the preceptor. Preceptor is aware and concurs with the plan as stated in the body of this note and will attest to such by his/her cosignature. ATTENDING NOTE I have both independently examined this patient as well as reviewed the H&P. I have discussed in detail with the resident the findings and plan of treatment as documented in the residents note. I will continue to follow the patient and offer further guidance to the patients care as necessary during this hospital stay. ESTER Moya MD, DO Oct 17, 2016 03:15 RICHMOND MCCARTNEY MD Oct 17, 2016 18:40
--- NOTE | 2016-10-17 05:53 | ECGEPIP ---
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
[2016-10-17 06:00] VITALS: BP 132/85
[2016-10-17 06:08] LABS: MEAN CORPUSCULAR HEMOGLOBIN 31.5 pg (27.0-33.0); MEAN CORPUSCULAR HGB CONC 35.9 g/dl (32.0-36.5); MEAN CORPUSCULAR VOLUME 87.7 fl (80.0-96.0)
[2016-10-17 07:15] LABS: ANION GAP 4 MEQ/L (8-16); BLOOD UREA NITROGEN 18 MG/DL (7-18); CALCIUM LEVEL 9.7 MG/DL (8.8-10.2); CARBON DIOXIDE LEVEL 28 MEQ/L (21-32); CHLORIDE LEVEL 105 MEQ/L (98-107); CREATININE FOR GFR 0.89 MG/DL (0.70-1.30); GLOMERULAR FILTRATION RATE > 60.0 (>35); GLUCOSE, FASTING 111 MG/DL (83-110); POTASSIUM SERUM 3.7 MEQ/L (3.5-5.1); SODIUM LEVEL 137 MEQ/L (136-145)
--- NOTE | 2016-10-17 07:25 | REP ---
Chest, single PA view: Comparison is 09/25/2016. There is an incomplete inspiratory effort. Lung hannah are clear. Cardiac size is normal. The vinay, mediastinum, and bony thorax are unremarkable. Impression: There are no acute cardiopulmonary findings. There is an incomplete inspiratory effort. Signed by Jordan Ruvalcaba MD 10/17/2016 07:17 A
[2016-10-17] MEDS: HumaLOG INSULIN (NovoLOG) PER UNIT SC SCH ×4 (07:30→20:56)
[2016-10-17] MEDS ORDERED: oxyBUTYnin 5 MG TAB PO SCH (09:00)
[2016-10-17] MEDS: SENOKOT S TAB PO SCH ×2 (09:39→20:02)
[2016-10-17] MEDS: LEVOTHYROXINE 75MCG TABLET (0.075MG) PO SCH (09:40)
[2016-10-17] MEDS: PARoxetine 20 MG TAB PO SCH (09:45)
[2016-10-17] MEDS: FENOFIBRATE 145 MG TAB (TRICOR) PO SCH (09:46)
[2016-10-17] MEDS: ENOXAPARIN 40 MG/0.4 ML SYRINGE (J1650) SC SCH (09:46)
[2016-10-17] MEDS: SITagliptin 50 MG TAB (JANUVIA) PO SCH (09:46)
[2016-10-17] MEDS ORDERED: MORPHINE 2 MG/ML 1ML SYRINGE IV ONE (12:30)
[2016-10-17 14:00] VITALS: BP 133/88
--- NOTE | 2016-10-17 14:26 | REP ---
MR LUMBAR SPINE WITHOUT CONTRAST: HISTORY: Back pain. The examination is incomplete as only sagittal T1 and T2-weighted images were obtained. The images are markedly degraded by motion. Decreased signal intensity on T2-weighted images is present in the L4-5 and L5-S1 intervertebral discs. The discs are decreased in height. These findings are consistent with disc degeneration. There is no disc bulge or herniation at the L1-2 through L3-4 levels. A disc bulge is present at the L4-5 level. There are 6 mm of grade 1 spondylolisthesis of L4 on 5. There is at least mild compression of the thecal sac. A disc bulge is present at the L5-S1 level. There is minimal compression of the thecal sac. The conus medullaris is normal in appearance terminating at the level of the T12-L1 intervertebral disc. Normal signal intensity is present in the lumbar vertebral bodies. IMPRESSION: Limited examination demonstrating disc bulge and grade 1 spondylolisthesis at the L4-5 level and disc bulge at the L5-S1 level. An addendum will be added if the patient returns to complete the examination. Signed by Thang Bauman MD 10/17/2016 02:31 P
[2016-10-17] MEDS: oxyBUTYnin *DITROPAN XL* 5 MG TABCR PO SCH (20:02)
[2016-10-17] MEDS: ROSUVASTATIN 10 MG TAB (CRESTOR) PO SCH (20:02)
[2016-10-17] MEDS ORDERED: TAMSULOSIN 0.4 MG CAP PO SCH (21:00)
[2016-10-17 22:00] VITALS: BP 144/86
[2016-10-18 00:51] LABS: METHADONE URINE NEGATIVE (NEGATIVE)
[2016-10-18 06:00] VITALS: BP_SYST 141; BP_SYST 147; BP_SYST 148; BP_DIAS 101; BP_DIAS 74; BP_DIAS 99
[2016-10-18 06:23] LABS: MEAN CORPUSCULAR HEMOGLOBIN 30.9 pg (27.0-33.0); MEAN CORPUSCULAR HGB CONC 35.1 g/dl (32.0-36.5); MEAN CORPUSCULAR VOLUME 87.8 fl (80.0-96.0); RED CELL DISTRIBUTION WIDTH 14.5 % (11.5-14.5); WHITE BLOOD COUNT 5.8 K/mm3 (4.0-10.0)
[2016-10-18] MEDS: NS 1,000 ML IV SCH ×2 (06:39→17:08)
[2016-10-18 06:43] LABS: ANION GAP 6 MEQ/L (8-16); BLOOD UREA NITROGEN 15 MG/DL (7-18); CALCIUM LEVEL 9.6 MG/DL (8.8-10.2); CARBON DIOXIDE LEVEL 24 MEQ/L (21-32); CHLORIDE LEVEL 104 MEQ/L (98-107); CREATININE FOR GFR 0.73 MG/DL (0.70-1.30); GLOMERULAR FILTRATION RATE > 60.0 (>35); GLUCOSE, FASTING 116 MG/DL (83-110); POTASSIUM SERUM 3.5 MEQ/L (3.5-5.1); SODIUM LEVEL 134 MEQ/L (136-145)
[2016-10-18] MEDS: SENOKOT S TAB PO SCH ×2 (08:27→20:07)
[2016-10-18] MEDS: SITagliptin 50 MG TAB (JANUVIA) PO SCH (08:28)
[2016-10-18] MEDS: FENOFIBRATE 145 MG TAB (TRICOR) PO SCH (08:28)
[2016-10-18] MEDS: PARoxetine 20 MG TAB PO SCH (08:28)
[2016-10-18] MEDS: LEVOTHYROXINE 75MCG TABLET (0.075MG) PO SCH (08:28)
[2016-10-18] MEDS: ENOXAPARIN 40 MG/0.4 ML SYRINGE (J1650) SC SCH (08:29)
[2016-10-18] MEDS: HumaLOG INSULIN (NovoLOG) PER UNIT SC SCH ×4 (08:30→20:10)
[2016-10-18 14:00] VITALS: BP 136/60
--- NOTE | 2016-10-18 18:10 | IPN ---
DATE: 10/18/2016 SUBJECTIVE: The patient was seen and examined in the room today. The patient is alert and awake during the encounter; however, the patient shows some signs of confusion. The patient does not know the name of our hospital and does not know the year. However, the patient started to get some right answers after multiple redirection. Per patient, the patient still feels fatigued, but he would like to move around more even though his gait is not stable at this moment. He has very poor oral intake. His breakfast is laying in front of him, but he does not want to consume any oral diet. Per patient, the patient did have a good night's sleep yesterday, and he felt that good sleep may have benefited him. Yesterday, the patient had a scheduled MRI of the spine to rule out any possible malignancy, metastasis. The patient does have a history of prostate cancer. However, the patient continues with agitation and claustrophobia and the patient could not sustain the MRI scan, even though a side dose of pain medication was given to the patient to provide extra comfort, but the patient still cannot get through the MRI scan. When asked about what the patient would feel or doing when the scan occurred, the patient does not have a clear recollection of the event. OBJECTIVE: VITAL SIGNS: Temperature is 97.9, pulse is 85, respirations 18, blood pressure is 147/101, pulse oximetry is 93% on room air. GENERAL: No sign of acute distress. The patient is alert and awake but the patient is not oriented. HEENT: Normocephalic, atraumatic. Extraocular motor grossly intact. CARDIOVASCULAR: Positive S1, S2, regular rate. LUNGS: Clear to auscultation bilaterally. ABDOMEN: Obese. Nontender, nondistended. EXTREMITIES: No edema, no sign of cyanosis. LABORATORY DATA: WBC is 5.8, hemoglobin 12.5, hematocrit 35.7, platelet count is 156. Sodium 134, potassium 3.5, chloride 104, carbon dioxide 24, BUN 15, creatinine 0.73, GFR is greater than 60, fasting glucose 116, calcium is 9.6. ASSESSMENT AND PLAN: 1. Severe weakness with dehydration. The patient continues to have very poor oral intake. The patient is currently supported on intravenous (IV) fluids. The patient does have a long duration of poor sleep quality prior to admission due to frequent urinary incontinence. Will try to provide support to give the patient more rest. Hopefully, the patient's mental status shows improvement. CT of the head was performed on the night of admission and the result was negative. Result of the ammonia level is also negative, and the patient does not have any sign of acute infection. 2. Rhabdomyolysis, possibly due to previous multiple falls. The patient is on intravenous (IV) hydration. Continue to follow the levels. 3. Prostate cancer. Status post radiation. The patient continues to have urinary incontinence. 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 Urology has been consulted. 4. Urinary incontinence. Possibly due to recent radiation therapy. 5. Right flank pain/abdominal pain. The patient is a very poor historian. The patient could not provide a lot of detail with regards to patient's discomfort. Initially, MRI of the spine was ordered to rule out any possible malignancy or metastasis contributing to the patient's pain. However, the patient could not tolerate the procedure. We will consider repeating the study when the patient's mental status is more intact. 6. Hypothyroidism. On supplements. 7. Hypercholesterolemia. 8. Diabetes. On sliding scale. 9. Deep vein thrombosis (DVT) prophylaxis. The patient is on Lovenox. MTDD
[2016-10-18] MEDS: ROSUVASTATIN 10 MG TAB (CRESTOR) PO SCH (20:07)
[2016-10-18] MEDS: oxyBUTYnin *DITROPAN XL* 5 MG TABCR PO SCH (20:07)
[2016-10-18 22:00] VITALS: BP 145/76
[2016-10-19] MEDS: NS 1,000 ML IV SCH (03:14)
[2016-10-19 06:00] VITALS: BP 163/88
[2016-10-19 06:56] LABS: MEAN CORPUSCULAR HEMOGLOBIN 31.7 pg (27.0-33.0); MEAN CORPUSCULAR HGB CONC 36.1 g/dl (32.0-36.5); MEAN CORPUSCULAR VOLUME 87.6 fl (80.0-96.0); RED CELL DISTRIBUTION WIDTH 14.6 % (11.5-14.5); WHITE BLOOD COUNT 6.6 K/mm3 (4.0-10.0)
[2016-10-19 07:09] LABS: ANION GAP 5 MEQ/L (8-16); BLOOD UREA NITROGEN 14 MG/DL (7-18); CALCIUM LEVEL 10.2 MG/DL (8.8-10.2); CARBON DIOXIDE LEVEL 26 MEQ/L (21-32); CHLORIDE LEVEL 101 MEQ/L (98-107); CREATININE FOR GFR 0.81 MG/DL (0.70-1.30); GLOMERULAR FILTRATION RATE > 60.0 (>35); GLUCOSE, FASTING 134 MG/DL (83-110); POTASSIUM SERUM 3.7 MEQ/L (3.5-5.1); SODIUM LEVEL 132 MEQ/L (136-145)
[2016-10-19] MEDS: SENOKOT S TAB PO SCH ×2 (08:17→21:00)
[2016-10-19] MEDS: ENOXAPARIN 40 MG/0.4 ML SYRINGE (J1650) SC SCH (08:17)
[2016-10-19] MEDS: PARoxetine 20 MG TAB PO SCH (08:17)
[2016-10-19] MEDS: LEVOTHYROXINE 75MCG TABLET (0.075MG) PO SCH (08:17)
[2016-10-19] MEDS: FENOFIBRATE 145 MG TAB (TRICOR) PO SCH (08:17)
[2016-10-19] MEDS: HumaLOG INSULIN (NovoLOG) PER UNIT SC SCH ×4 (08:18→21:00)
[2016-10-19] MEDS ORDERED: diphenhydrAMINE 25 MG CAP PO ONE (11:15)
[2016-10-19 14:00] VITALS: BP 175/72
[2016-10-19] MEDS ORDERED: ALPRAZolam 0.5 MG TAB PO PRN (14:30)
[2016-10-19] MEDS ORDERED: risperiDONE 0.25 MG TAB PO ONE (17:00)
[2016-10-19] MEDS ORDERED: risperiDONE 0.25 MG TAB PO SCH (17:15)
[2016-10-19] MEDS: ROSUVASTATIN 10 MG TAB (CRESTOR) PO SCH (21:00)
[2016-10-19] MEDS: risperiDONE 0.25 MG TAB PO SCH (21:00)
[2016-10-19] MEDS: oxyBUTYnin *DITROPAN XL* 5 MG TABCR PO SCH (21:00)
--- NOTE | 2016-10-19 21:20 | IPN ---
DATE: 10/19/2016 SUBJECTIVE: The patient is seen and examined in the room today. The patient continues to have elevated agitation. There were a few incidents that the patient stated he will throw a punch to the nursing staff. The patient continues to get very agitated when we asked him to recall the current year. Per staff and family member, the patient did not have a very good sleep in the past few days, especially yesterday. It is very rare he maintains nap time greater than half hour to an hour. Per nursing staff, the patient did also walk to the restroom multiple times throughout the day for urination, but we do not know how much urine output. Per family member., the patient has obsessive compulsive disorder (OCD), and he has been very stubborn, and diaper was offered to the patient previously and he strongly refused the diapers. The patient also refused a bedside commode. OBJECTIVE: VITAL SIGNS: Temperature is 98.6, pulse 98, respirations 20, blood pressure 175/72, pulse oximetry 96% on room air. GENERAL: Agitated, alert and awake. The patient is not oriented. HEENT: Normocephalic, atraumatic. CARDIOVASCULAR: Tachycardic. Positive S1, S2. LUNGS: Clear to auscultation bilaterally. ABDOMEN: Obese, nontender, nondistended. EXTREMITIES: No edema. No sign of cyanosis. LABORATORY DATA: WBC 6.6, hemoglobin 13.3, hematocrit 36.5, platelet count 161. Sodium is 132, potassium 3.7, chloride 101, carbon dioxide 26, BUN 14, creatinine 0.81, GFR greater than 60, fasting glucose 134, calcium 10.2. ASSESSMENT AND PLAN: 1. Altered mental status change. The patient has a negative CT. The patient's altered mental status change resembles delirium of psychosis. Before we try to rule out any drug-induced delirium, we will consult neurologist for further assistance. 2. Severe weakness with dehydration. The patient had poor oral intake previously. The patient was started on intravenous (IV) fluid. The patient became combative, agitated. He pulled his IV out and he strongly refused reestablishment of the IV. For this moment, we will try to manage the patient's acute agitation and the patient may benefit from another IV tomorrow. 3. Rhabdomyolysis, possibly due to previous multiple falls. The patient had IV hydration previously. Currently we are unable to establish the IV. We encourage oral intake. I will recheck the total creatine kinase (CK) tomorrow. 4. Prostate cancer, status post radiation. The patient has some urinary frequency. Possibly due to irritation and swelling from the radiation. Urology has been consulted. The patient is on oxybutynin. 5. Right flank pain, abdominal pain. The patient has been a very poor historian at this moment. Currently during the encounter today, the patient did not complain about any pain. We will continue to reassess the patient. Previously the patient had MRI of the spine that was ordered to rule out possible malignancy or metastasis that could explain the patient's initial pain. However, the patient could not tolerate the MRI. 6. Hypothyroidism, on supplement. 7. Hypercholesterolemia. 8. Diabetes on sliding scale. 9. Deep venous thrombosis (DVT) prophylaxis. Patient on Lovenox.
[2016-10-19 22:00] VITALS: BP 118/61
[2016-10-20 06:48] LABS: MEAN CORPUSCULAR HEMOGLOBIN 31.7 pg (27.0-33.0); MEAN CORPUSCULAR HGB CONC 35.8 g/dl (32.0-36.5); MEAN CORPUSCULAR VOLUME 88.5 fl (80.0-96.0); RED CELL DISTRIBUTION WIDTH 14.3 % (11.5-14.5); WHITE BLOOD COUNT 6.3 K/mm3 (4.0-10.0)
[2016-10-20 07:13] LABS: ANION GAP 7 MEQ/L (8-16); BLOOD UREA NITROGEN 14 MG/DL (7-18); CALCIUM LEVEL 10.3 MG/DL (8.8-10.2); CARBON DIOXIDE LEVEL 27 MEQ/L (21-32); CHLORIDE LEVEL 104 MEQ/L (98-107); CREATININE FOR GFR 0.82 MG/DL (0.70-1.30); GLOMERULAR FILTRATION RATE > 60.0 (>35); GLUCOSE, FASTING 106 MG/DL (83-110); SODIUM LEVEL 138 MEQ/L (136-145)
[2016-10-20] MEDS: HumaLOG INSULIN (NovoLOG) PER UNIT SC SCH ×4 (07:51→21:00)
[2016-10-20] MEDS: FENOFIBRATE 145 MG TAB (TRICOR) PO SCH (07:52)
[2016-10-20] MEDS: SENOKOT S TAB PO SCH ×2 (07:53→20:48)
[2016-10-20] MEDS: ACETAMINOPHEN TAB 650MG DOSE (2X325MG) PO PRN ×2 (07:53→18:58)
[2016-10-20] MEDS: risperiDONE 0.25 MG TAB PO SCH ×2 (07:53→20:47)
[2016-10-20] MEDS: PARoxetine 20 MG TAB PO SCH (07:53)
[2016-10-20] MEDS: LEVOTHYROXINE 75MCG TABLET (0.075MG) PO SCH (07:54)
[2016-10-20] MEDS: ENOXAPARIN 40 MG/0.4 ML SYRINGE (J1650) SC SCH (07:54)
[2016-10-20 14:00] VITALS: BP 130/58
[2016-10-20] MEDS: oxyBUTYnin *DITROPAN XL* 5 MG TABCR PO SCH (20:48)
[2016-10-20] MEDS: ROSUVASTATIN 10 MG TAB (CRESTOR) PO SCH (20:48)
--- NOTE | 2016-10-20 20:48 | IPN ---
DATE: 10/20/2016 SUBJECTIVE: The patient is seen and examined in the room today. During morning encounter, the patient tried to get some rest. The patient continued to have confusion. The patient does not know the place, does not know the year. The patient starts to show increased agitation with further questioning. Per nursing staff, the patient has several episodes of agitation overnight, and the patient had poor sleep yesterday. This morning after receiving the medications, the patient started to calm down. OBJECTIVE: VITAL SIGNS: Temperature is 98.3, pulse 88, respirations 20, blood pressure 163/88, pulse oximetry 94% on room air. GENERAL: The patient is alert and awake, able to answer questions but not oriented. Able to follow commands. HEENT: Normocephalic, atraumatic. Extraocular motor grossly intact. CARDIOVASCULAR: Tachycardic. Positive S1, S2. LUNGS: Clear to auscultation bilaterally. ABDOMEN: Soft, nontender, nondistended. EXTREMITIES: No edema. No sign of cyanosis. LABORATORY DATA: WBC 6.3, hemoglobin 13.5, hematocrit 37.8, platelet count 145. Sodium 138, potassium 4, chloride 104, carbon dioxide 27, BUN 14, creatinine 0.82, GFR greater than 60, fasting glucose is 106, calcium 10.3. Total CK is 471. ASSESSMENT AND PLAN: 1. Altered mental status. The patient may be experiencing delirium from the narcotics. Neurology has been consulted. Recommend trial of risperidone 0.25 mg by mouth twice a day. We will titrate the medication to achieve adequate calming effect, and the patient has been restless for multiple nights and will likely also contribute to patient's poor mentation. 2. Severe weakness with dehydration. The patient had poor oral intake previously. The patient had intravenous (IV) fluid resuscitation. However, there is an episode of patient becoming combative and he pulled his IV line out and he refused for the IV line reestablishment. We will followup the patient. We will encourage oral intake and monitor intake and output. 3. Rhabdomyolysis, possibly secondary to previous multiple falls. The patient had a few days of IV hydration. Total creatine kinase (CK) is improving. Now we do not have IV access anymore, we will continue to trend the total CK, and will encourage oral intake. 4. Prostate cancer, status post radiation. The patient may have irritation and swelling from the radiation causing urgency. Urology has been consulted. The patient is on oxybutynin. 5. Right-sided flank pain and abdominal pain. The patient has been a very poor historian at this moment, unable to get clear history for patient's pain . MRI scan was scheduled previously to rule out any possible bony metastasis. However, the patient cannot stay still for the MRI, and we are unable to investigate further. We cannot rule out bone metastasis from the cancer of the patient, and we are unable to pursue further imaging study at this moment. We will try to treat the patient's acute delirium state, and we will pursue the workup further later when patient recovers. On 10/15/2016, a few days prior to the current admission, the patient did have CT abdomen and pelvis with contrast. That imaging study showed no abnormality that can explain the patient's current right flank/abdominal pain. 6. Hypothyroidism, on Synthroid. 7. Hypercholesterolemia. 8. Diabetes on sliding scale. 9. Deep venous thrombosis (DVT) prophylaxis on Lovenox. MTDD
[2016-10-20 22:00] VITALS: BP 136/69
[2016-10-21 06:00] VITALS: BP 140/88
[2016-10-21 06:44] LABS: MEAN CORPUSCULAR HEMOGLOBIN 31.2 pg (27.0-33.0); MEAN CORPUSCULAR HGB CONC 35.3 g/dl (32.0-36.5); MEAN CORPUSCULAR VOLUME 88.4 fl (80.0-96.0); RED CELL DISTRIBUTION WIDTH 14.5 % (11.5-14.5); WHITE BLOOD COUNT 5.5 K/mm3 (4.0-10.0)
[2016-10-21 07:07] LABS: ANION GAP 8 MEQ/L (8-16); BLOOD UREA NITROGEN 16 MG/DL (7-18); CALCIUM LEVEL 10.6 MG/DL (8.8-10.2); CARBON DIOXIDE LEVEL 29 MEQ/L (21-32); CHLORIDE LEVEL 102 MEQ/L (98-107); CREATININE FOR GFR 0.99 MG/DL (0.70-1.30); GLOMERULAR FILTRATION RATE > 60.0 (>35); GLUCOSE, FASTING 118 MG/DL (83-110); POTASSIUM SERUM 3.7 MEQ/L (3.5-5.1); SODIUM LEVEL 139 MEQ/L (136-145)
[2016-10-21] MEDS: SENOKOT S TAB PO SCH ×2 (08:06→19:31)
[2016-10-21] MEDS: PARoxetine 20 MG TAB PO SCH (08:06)
[2016-10-21] MEDS: LEVOTHYROXINE 75MCG TABLET (0.075MG) PO SCH (08:06)
[2016-10-21] MEDS: ACETAMINOPHEN TAB 650MG DOSE (2X325MG) PO PRN (08:06)
[2016-10-21] MEDS: FENOFIBRATE 145 MG TAB (TRICOR) PO SCH (08:06)
[2016-10-21] MEDS: ENOXAPARIN 40 MG/0.4 ML SYRINGE (J1650) SC SCH (08:12)
[2016-10-21] MEDS: HumaLOG INSULIN (NovoLOG) PER UNIT SC SCH ×4 (08:12→21:00)
[2016-10-21] MEDS: risperiDONE 0.25 MG TAB PO SCH ×2 (09:00→19:31)
[2016-10-21 14:00] VITALS: BP 124/72
[2016-10-21] MEDS: ROSUVASTATIN 10 MG TAB (CRESTOR) PO SCH (19:31)
[2016-10-21] MEDS: oxyBUTYnin *DITROPAN XL* 5 MG TABCR PO SCH (19:32)
--- NOTE | 2016-10-21 21:02 | IPN ---
DATE: 10/21/2016 SUBJECTIVE: The patient is seen and examined in the room in the afternoon. Patient was at rest in bed. At the time of encounter, patient is calm, resting in bed, no sign of agitation. Patient still has confusion. Patient knows that this is [facility], but he does not remember the year and patient has a difficult time recalling the president's name. OBJECTIVE: VITAL SIGNS: Temperature is 98.2, pulse is 88, respirations 18, blood pressure 140/88, pulse oximetry 92% in room air. GENERAL: At the time of the encounter, patient is calm, alert and awake, partially oriented, able to follow commands. HEENT: Normocephalic, atraumatic. Extraocular motors grossly intact. CARDIOVASCULAR: Positive S1, S2, regular rate. LUNGS: Clear to auscultation bilaterally. ABDOMEN: Soft, nontender, nondistended. EXTREMITIES: No edema. No sign of cyanosis. LABORATORY DATA: WBC 5.5, hemoglobin 13.3, hematocrit 37.6, platelet count 176. Sodium 139, potassium 3.7, chloride 102, carbon dioxide 29, BUN 16, creatinine 0.99, GFR greater than 60, fasting glucose is 118, calcium 10.6, total CK is 417. ASSESSMENT AND PLAN: 1. Altered mental status, suspected delirium induced from narcotics. Neurologist has been consulted. Recommend trial of risperidone 0.25 mg by mouth twice a day. We will try to titrate the medication to achieve adequate calming effect. Later this afternoon, patient was reported to have increased agitation. After reviewing the chart, it was noted patient did have refusal of medication earlier in the morning so the patient has not had a chance to take the risperidone for the past several hours which resulted in worsening agitation. Sitter will be reordered and it is very important that patient not skip a dose of risperidone. It may be difficult to dispense the medication while patient is in an acute agitated state, however the medication dispensing should be re-attempted when patient is in a more calm state. Due to multiple adverse effects from different medications currently, patient should not take any type of narcotics. We will also try to avoid benzodiazepines. The only class of medication we are attempting is an antipsychotic for patient's delirium. 2. Severe weakness with dehydration. Patient had a very poor night's sleep and patient continues to show poor oral intake. IV fluid was attempted previously, however there was an episode of patient becoming combative and he pulled his IV line out and he refused the IV line reestablishment. Currently, we will continue to encourage patient to increase oral intake and we anticipate patient will be able to tolerate more oral when patient's mentation improves. 3. Rhabdomyolysis, most likely secondary to previous multiple falls. Patient had a few days of IV hydration previously. Total creatine kinase (CK) has been improving. Now we have lost IV access for a few days and we have had a difficult time reestablishing the IV. We will continue to trend the total creatine kinase (CK) and continue to encourage oral intake. 4. Prostate cancer, status post radiation. Postradiation irritation causing patient to feel frequent urgency and patient has been refusing using diaper or bedside commode. Urology has been consulted and patient is placed on oxybutynin per recommendation. Currently, patient insists on walking to the restroom every time he feels the urgency which increases the significant fall risk. Patient should be on close monitoring and now patient has one-to-one sitters. 5. Right-sided flank pain/abdominal pain. Patient has been a very poor historian since admission due to his altered mental status. Patient could not give a clear history of his pain. Prevously, MRI scan was performed to rule out any possible bony metastasis. However, patient could not stay through the whole MRI and the study was incomplete. Once patient is resolving from his acute delirium, we will continue with MRI followup of the vertebral spine to rule out bony metastasis and patient may also benefit from MRI of the brain. Patient did have a CT abdomen and pelvis performed a few days prior to the admission (10/15/2016) which did not show any significant abnormalities. 6. Hypothyroidism, on Synthroid. 7. Hypercholesterolemia. 8. Diabetes, on sliding scale. 9. Deep venous thrombosis (DVT) prophylaxis, on Lovenox.
[2016-10-22] MEDS ORDERED: HALOPERIDOL 5 MG/ML VIAL (J1630) IV PRN (00:15)
[2016-10-22] MEDS ORDERED: HALOPERIDOL 5 MG/ML VIAL (J1630) As Ordered ONE (00:21)
[2016-10-22 01:00] VITALS: BP 129/95
[2016-10-22] MEDS ORDERED: HALOPERIDOL 5 MG/ML VIAL (J1630) IM PRN (04:30)
[2016-10-22 06:00] VITALS: BP_SYST 137
[2016-10-22 07:28] LABS: MEAN CORPUSCULAR HEMOGLOBIN 31.5 pg (27.0-33.0); MEAN CORPUSCULAR HGB CONC 35.3 g/dl (32.0-36.5); MEAN CORPUSCULAR VOLUME 89.3 fl (80.0-96.0); RED CELL DISTRIBUTION WIDTH 14.4 % (11.5-14.5); WHITE BLOOD COUNT 6.6 K/mm3 (4.0-10.0)
[2016-10-22 07:32] LABS: ANION GAP 6 MEQ/L (8-16); BLOOD UREA NITROGEN 18 MG/DL (7-18); CALCIUM LEVEL 10.4 MG/DL (8.8-10.2); CARBON DIOXIDE LEVEL 28 MEQ/L (21-32); CHLORIDE LEVEL 99 MEQ/L (98-107); CREATININE FOR GFR 0.85 MG/DL (0.70-1.30); GLOMERULAR FILTRATION RATE > 60.0 (>35); GLUCOSE, FASTING 113 MG/DL (83-110); POTASSIUM SERUM 3.4 MEQ/L (3.5-5.1); SODIUM LEVEL 133 MEQ/L (136-145)
[2016-10-22] MEDS: ENOXAPARIN 40 MG/0.4 ML SYRINGE (J1650) SC SCH (09:39)
[2016-10-22] MEDS: HumaLOG INSULIN (NovoLOG) PER UNIT SC SCH ×4 (09:40→22:00)
[2016-10-22] MEDS: FENOFIBRATE 145 MG TAB (TRICOR) PO SCH (09:41)
[2016-10-22] MEDS: SENOKOT S TAB PO SCH ×2 (09:41→21:15)
[2016-10-22] MEDS: LEVOTHYROXINE 75MCG TABLET (0.075MG) PO SCH (09:41)
[2016-10-22] MEDS: risperiDONE 0.25 MG TAB PO SCH ×2 (09:41→21:15)
[2016-10-22] MEDS: PARoxetine 20 MG TAB PO SCH (09:41)
--- NOTE | 2016-10-22 10:29 | ECGEPIP ---
Stationary ECG Study [facility] Test Date: 2016-10-22 Pat Name: MARGARET العراقي Department: Room: [place] [address] Gender: M [employer]: KIKI : 1935 Requested By: RICHMOND MCCARTNEY Order Number: [id number] Reading MD: Del Carrasco Measurements Intervals [place] Rate: 89 P: 48 MA: 181 QRS: -25 QRSD: 105 T: 40 QT: 357 QTc: 435 Interpretive Statements SINUS RHYTHM BORDERLINE LEFT AXIS DEVIATION Nonspecific T wave abnormality Similar to tracing done 10-16-16 Electronically Signed On 10-22-2016 10:29:36 EDT by Del Carrasco
[2016-10-22 14:00] VITALS: BP 142/69
--- NOTE | 2016-10-22 14:51 | IPN ---
DATE: 10/22/2016 The patient is seen and examined at the bedside. Chart has been reviewed. At this point, the patient still appears to be disoriented to time, could not tell the season, the month, the year, and date. He is awake and alert to himself and place. He has no complaints of chest pain, pressure, tightness, nausea, vomiting, diarrhea or abdominal pain. Per nursing, the patient wandered around out to the offices on [address], requiring a sitter overnight and a dose of Haldol. EKG shows no prolonged QT. PHYSICAL EXAMINATION: VITAL SIGNS: Temperature 97.5, pulse 90, respiratory rate 18, blood pressure 129/95, 157/45, 98% on room air. GENERAL: The patient is awake, alert, oriented to person and place only. Disoriented to time and date. He is able to answer and follow commands. No respiratory distress. No use of respiratory accessory muscles. Normocephalic, atraumatic. Extraocular muscles intact. HEART: S1, S2. Regular rate and rhythm. LUNGS: Clear to auscultation. No wheezing, rales or rhonchi. ABDOMEN: Soft, nontender, nondistended. Positive bowel sounds. No rebound or guarding. No hepatosplenomegaly. EXTREMITIES: No pitting edema. No signs of cyanosis or clubbing. LABORATORY DATA: Reviewed. Microbiology and imaging studies reviewed. ASSESSMENT AND PLAN: This is an 81-year-old male who lives at home with his with prior history of prostate cancer, status post radiation, hypertension, diabetes, depression, hypothyroidism, right hemicolectomy, resection of adenoma with anastomosis, hernia repair, possible cholecystectomy in the past, presented to the emergency room on 10/17/2016 due to altered mental status, felt to be secondary to his Percocet and [place]. CT of the head was negative. The patient continues to be confused and wandered about requiring a sitter overnight. CURRENT ISSUES: 1. Acute Metabolic Encephalopathy/Altered mental status, suspect delirium induced from narcotics. Neurology, Dr. Soriano, has been consulted, who recommended a trial of risperidone 0.25 mg twice a day, titrated for calming effect. The patient had increased confusion with wandering about in [address] into the office areas and required a sitter overnight. He did receive a dose of Haldol. EKG was unremarkable. 2. Hypothyroidism. Continue on Synthroid 75 mcg daily. 3. Depression. Continue on Paxil. 4. Type 2 diabetes. On insulin sliding scale. Hyperglycemic protocol with coverage. 5. Hyperlipidemia. On Crestor. 6. Bowel regimen. On Senokot. 7. History of prostate cancer, status post radiation. Post radiation irritation causing urgency. Refusing diaper or bedside commode. Urology has been consulted. On oxybutynin per their recommendations. The patient has just been walking to the restroom, which increases the fall risk, right now with a sitter. 8. Rhabdomyolysis due to a prior history of multiple falls, status post IV fluids for the past few days. Total CK has improved with IV access. Continue to monitor oral intake and total CK. 9. Severe weakness and dehydration. IV fluids have been given the past few days. Previously, he has been combative and pulled his IV line out. 10. Right sided flank and abdominal pain. Poor historian with altered mental status. MRI of the lumbar spine showed no bony metastases. CT of the abdomen and pelvis showed no abnormalities. Currently no abdominal pain. 11. Hypercholesterolemia, chronic. 12. Deep vein thrombosis (DVT) prophylaxis. Subcutaneous heparin. Physical therapy (PT) noted that the patient is too confused to work with them. We will attempt again today. MTDD
[2016-10-22] MEDS: ROSUVASTATIN 10 MG TAB (CRESTOR) PO SCH (21:15)
[2016-10-22] MEDS: oxyBUTYnin *DITROPAN XL* 5 MG TABCR PO SCH (21:15)
[2016-10-23 06:00] VITALS: BP 123/63
[2016-10-23 06:47] LABS: MEAN CORPUSCULAR HEMOGLOBIN 31.1 pg (27.0-33.0); MEAN CORPUSCULAR HGB CONC 35.4 g/dl (32.0-36.5); MEAN CORPUSCULAR VOLUME 87.9 fl (80.0-96.0); RED CELL DISTRIBUTION WIDTH 13.9 % (11.5-14.5); WHITE BLOOD COUNT 5.4 K/mm3 (4.0-10.0)
[2016-10-23 06:57] LABS: ANION GAP 6 MEQ/L (8-16); BLOOD UREA NITROGEN 22 MG/DL (7-18); CALCIUM LEVEL 10.8 MG/DL (8.8-10.2); CARBON DIOXIDE LEVEL 30 MEQ/L (21-32); CHLORIDE LEVEL 103 MEQ/L (98-107); CREATININE FOR GFR 1.01 MG/DL (0.70-1.30); GLOMERULAR FILTRATION RATE > 60.0 (>35); GLUCOSE, FASTING 128 MG/DL (83-110); POTASSIUM SERUM 3.9 MEQ/L (3.5-5.1); SODIUM LEVEL 139 MEQ/L (136-145)
[2016-10-23] MEDS: ENOXAPARIN 40 MG/0.4 ML SYRINGE (J1650) SC SCH (08:33)
[2016-10-23] MEDS: risperiDONE 0.25 MG TAB PO SCH ×2 (08:33→22:21)
[2016-10-23] MEDS: SENOKOT S TAB PO SCH ×2 (08:33→22:21)
[2016-10-23] MEDS: PARoxetine 20 MG TAB PO SCH (08:34)
[2016-10-23] MEDS: FENOFIBRATE 145 MG TAB (TRICOR) PO SCH (08:34)
[2016-10-23] MEDS: LEVOTHYROXINE 75MCG TABLET (0.075MG) PO SCH (08:34)
[2016-10-23] MEDS: HumaLOG INSULIN (NovoLOG) PER UNIT SC SCH ×4 (08:34→21:00)
[2016-10-23 14:00] VITALS: BP 126/65
[2016-10-23 22:00] VITALS: BP 115/63
[2016-10-23] MEDS: ROSUVASTATIN 10 MG TAB (CRESTOR) PO SCH (22:21)
[2016-10-23] MEDS: oxyBUTYnin *DITROPAN XL* 5 MG TABCR PO SCH (22:21)
[2016-10-24 06:00] VITALS: BP 139/91
[2016-10-24] MEDS ORDERED: DITR5TAB PO (07:02)
[2016-10-24] MEDS ORDERED: RISP0.2516 PO (07:07)
[2016-10-24] MEDS ORDERED: DITR1TAB PO (07:07)
[2016-10-24] MEDS: SENOKOT S TAB PO SCH (08:19)
[2016-10-24] MEDS: LEVOTHYROXINE 75MCG TABLET (0.075MG) PO SCH (08:19)
[2016-10-24] MEDS: risperiDONE 0.25 MG TAB PO SCH (08:19)
[2016-10-24] MEDS: FENOFIBRATE 145 MG TAB (TRICOR) PO SCH (08:19)
[2016-10-24] MEDS: PARoxetine 20 MG TAB PO SCH (08:19)
[2016-10-24] MEDS: HumaLOG INSULIN (NovoLOG) PER UNIT SC SCH ×2 (08:19→11:50)
[2016-10-24] MEDS: ENOXAPARIN 40 MG/0.4 ML SYRINGE (J1650) SC SCH (08:20)
--- NOTE | 2016-10-24 10:08 | IPN ---
DATE: 10/23/2016 Patient is seen and examined at the bedside. Chart has been reviewed. This morning has no complaints, nausea or vomiting, diarrhea, abdominal pain. Tolerating his diet well. No chest pain, pressure or tightness, lightheadedness , palpitations. No fever, chills, cough. No upper or lower extremity weakness. Temperature 98.1, pulse 88, respiratory rate 18, blood pressure 123/63, 90% on room air. Lungs are clear to auscultation. No wheezing, rales or rhonchi. Heart: S1, S2. Sinus rhythm. Abdomen is soft, nontender, nondistended. Extremities: No pitting edema. Neurologically awake, alert, oriented to person. Disoriented to time and date. Answers questions appropriately. Motor function 5/5 in all four extremities. Face is midline, symmetric. Speech is fluent. No facial asymmetry or expressive aphasia. 10/23/2016 CBC and metabolic panel have been reviewed. ASSESSMENT AND PLAN: This is an 81-year-old male, lives at home with his , prior history of prostate cancer (CA), radiation, hypertension, diabetes, depression, hypothyroidism, right hemicolectomy, resection of adenoma with anastomosis, hernia repair, presented with confusion felt to gastroesophageal secondary to Percocet and [place]. CT of the head was negative. IMPRESSION: 1, Acute metabolic encephalopathy secondary to delirium and narcotics. At this time, infectious etiology was negative. 2. Hypothyroidism. Continue on Synthroid. 3. Depression. On Paxil. 4. Type 2 diabetes. Continue on hyperglycemic protocol, insulin sliding, consistent carbohydrate diet. 5. Hyperlipidemia. On Crestor. 6. History of prostate cancer, status post radiation causing urgency, refusing diaper or bedside commode. Oxybutynin per recommendation by neurology. 7. Rhabdomyolysis secondary to multiple falls, status post intravenous (IV) fluids. 8. Severe weakness and dehydration. 9. Right-sided flank with abdominal pain. CT shows no abnormalities. Resolved. DISPOSITION: Per family, they need 1-day notice prior to discharge. Therefore, will discharge first thing in the morning. [facility] HOSPITALAnotnia
--- NOTE | 2016-10-25 09:52 | DSES ---
DATE OF ADMISSION: 10/17/2016 DATE OF DISCHARGE: 10/24/2016 CONSULTANTS DURING THIS ADMISSION: Neurologist, Dr. Soriano. Urologist, Dr. Saavedra. PRIMARY DISCHARGE DIAGNOSES: 1. Opioid induced acute delirium/acute metabolic encephalopathy. 2. Severe weakness and dehydration. 3. Rhabdomyolysis secondary to previous multiple falls at home. 4. History of prostate cancer, status post radiation with urinary urgency. 5. Right sided flank pain and abdominal pain with negative CT of the abdomen and pelvis. 6. Hypothyroidism. 7. Hypercholesterolemia. 8. Type 2 diabetes. DISCHARGE MEDICATIONS: - oxybutynin XL 10 mg by mouth at night - fenofibrate 145 mg daily - Synthroid 75 mcg daily - metformin 500 mg at night - paroxetine 200 mg daily - rosuvastatin 10 mg at night - Januvia 100 mg daily - tamsulosin 0.8 mg at night - Risperdal 0.25 mg twice a day HOSPITAL COURSE: This is an 81-year-old male who presented to the emergency room with acute mental status change, thought to be secondary to his [place]. He has a prior history of prostate cancer, status post radiation, hypertension, diabetes, depression, hypothyroidism, right hemicolectomy, resection of adenoma with anastomosis, hernia repair. CT of the head was negative. Neurology was consulted. Dr. Soriano recommended a trial of Risperdal 0.25 mg twice a day for calming effect. The patient's family was concerned about additional medications. He did receive Haldol as he had wandered into the offices and required a sitter throughout the hospital stay. He had complained of urinary frequency. Dr. Saavedra was consulted and recommended oxybutynin 10 mg daily. Due to recurrent falls at home, the patient did come in with mild CPK elevated and treated with intravenous fluids for mild rhabdomyolysis, severe dehydration and weakness. CT of the abdomen and pelvis due to complaints of abdominal pain was essentially unremarkable and showed no acute abnormality. The patient had multiple enhancing masses in his spleen, may represent hemangioma with followup if clinically indicated, mild fatty liver. The patient passed a home safety evaluation and was safely discharged home with 24/7 care.
== END 2016-10-24 12:23 | disposition home or self-care (01) | DRG 557 ==
LOC: M ED 19:15 → EDBD 19:15 → M ED INP 10-17 01:27 → M MS5PR 10-17 02:36
PROVIDERS: ADMIT Hospitalist; ATTEND General Practice
DX: M62.82 Rhabdomyolysis (principal); G92 Toxic encephalopathy; T40.2X5A Adverse effect of other opioids, initial encounter; R10.31 Right lower quadrant pain; K59.00 Constipation, unspecified; E11.9 Type 2 diabetes mellitus without complications; E78.5 Hyperlipidemia, unspecified; E03.9 Hypothyroidism, unspecified; R26.9 Unspecified abnormalities of gait and mobility; F41.9 Anxiety disorder, unspecified; R16.1 Splenomegaly, not elsewhere classified; R32 Unspecified urinary incontinence; K76.0 Fatty (change of) liver, not elsewhere classified; F03.90 Unspecified dementia, unspecified severity, without behavioral disturbance, psychotic disturbance, mood disturbance, and anxiety; C61 Malignant neoplasm of prostate; E78.00 Pure hypercholesterolemia, unspecified; R53.83 Other fatigue; F32.9 Major depressive disorder, single episode, unspecified; R35.0 Frequency of micturition; E66.9 Obesity, unspecified; E86.0 Dehydration; R33.9 Retention of urine, unspecified; Z88.8 Allergy status to other drugs, medicaments and biological substances; Z87.891 Personal history of nicotine dependence; Z98.0 Intestinal bypass and anastomosis status; Z98.890 Other specified postprocedural states; Z79.84 Long term (current) use of oral hypoglycemic drugs; Z79.899 Other long term (current) drug therapy; Z68.34 Body mass index [BMI] 34.0-34.9, adult

== ENCOUNTER → 2016-11-04 | Outpatient (CLI) | payer MEDICARE, OTHER ==
[~2016-11-04] MED LIST changes: +DITR1TAB PO; +DITR5TAB PO; +NORC1TAB4 PO; +RISP0.2516 PO
--- NOTE | 2016-11-04 12:22 | REP ---
MRI BRAIN WITHOUT CONTRAST: HISTORY: Dementia. COMPARISON: CT 10/16/2016. Several punctate areas of increased signal intensity on T2-weighted images are present in the periventricular and subcortical white matter. This represents small vessel ischemic disease. There is no intraparenchymal hemorrhage, infarct, mass or midline shift. The ventricular system and cortical sulci as well as subarachnoid space in the posterior fossa are dilated consistent with mild volume loss. There is no extracerebral collection. Mucosal thickening is present in the right ethmoid and maxillary sinuses. IMPRESSION: Minimal small vessel ischemic disease. Mild volume loss. Signed by Thang Bauman MD 11/04/2016 12:31 P
== END ==
LOC: M PLARAD 09:52
PROVIDERS: ATTEND Psychiatry & Neurology Neurology
DX: G47.51 Confusional arousals (principal); F02.80 Dementia in other diseases classified elsewhere, unspecified severity, without behavioral disturbance, psychotic disturbance, mood disturbance, and anxiety

== ENCOUNTER → 2016-11-22 | Outpatient (REF) | payer MEDICARE, OTHER ==
[2016-11-22 12:37] LABS: FOLATE 7.9 NG/ML (>5.4); VITAMIN B12 LEVEL 229 PG/ML (247-911)
== END ==
LOC: M LAB REF 11:48
PROVIDERS: ATTEND Nurse Practitioner Family
DX: R41.0 Disorientation, unspecified (principal)

== ENCOUNTER → 2016-12-16 | Outpatient (CLI) | payer MEDICARE, OTHER | LOC: M SMT 11:25 | PROVIDERS: ATTEND Urology | DX: C61 Malignant neoplasm of prostate (principal) ==

== ENCOUNTER → 2017-04-15 | Outpatient (REF) | payer MEDICARE, OTHER ==
[2017-04-15 13:23] LABS: APPEARANCE, URINE CLEAR (CLEAR); BACTERIA, URINE AUTO NEGATIVE (NEGATIVE); BILIRUBIN, URINE AUTO NEGATIVE (NEGATIVE); BLOOD, URINE BLOOD NEGATIVE (NEGATIVE); COLOR, URINE YELLOW (YELLOW); GLUCOSE, URINE (UA) AUTO 1+ mg/dL (NEGATIVE); KETONE, URINE AUTO NEGATIVE (NEGATIVE); LEUKOCYTE ESTERASE, URINE AUTO NEGATIVE (NEGATIVE); MUCUS, URINE SMALL (NEGATIVE); NITRITE, URINE AUTO NEGATIVE (NEGATIVE); PROTEIN, URINE AUTO NEGATIVE (NEGATIVE); RBC, URINE AUTO 0 /HPF (0-3); SPECIFIC GRAVITY URINE AUTO 1.018 (1.002-1.035); SQUAMOUS EPITHELIAL CELL UR AU 0 /HPF (0-6); UROBILINOGEN, URINE AUTO 0.2 mg/dL (0.0-2.0); WBC, URINE AUTO 1 /HPF (0-3)
== END ==
LOC: M LAB REF 13:02
DX: R35.1 Nocturia (principal)
CPT/HCPCS: 81001

== ENCOUNTER → 2017-06-24 | Outpatient (CLI) | payer MEDICARE, OTHER ==
[2017-06-24 18:30] LABS: PROSTATIC SPECIFIC AG MONITOR < 0.01 NG/ML (< 4.0)
== END ==
LOC: M SMT 13:08
DX: C61 Malignant neoplasm of prostate (principal)
CPT/HCPCS: 84153

== ENCOUNTER 2017-07-22 11:39 | Day surgery (SDC) | payer MEDICARE, OTHER ==
[2017-07-22] MEDS: LR 1,000 ML IV (12:00)
[2017-07-22] MEDS ORDERED: PROPOFOL 200 MG/20 ML VIAL As Ordered ×3 (13:30→14:59)
[2017-07-22] MEDS ORDERED: LIDOCAINE 2% INJ 100 MG/5 ML SDV (FOR ANES.) As Ordered (13:30)
[2017-07-22] MEDS ORDERED: LIDOCAINE 2% INJ 100 MG/5 ML SYRINGE As Ordered (13:54)
== END 2017-07-22 16:03 | disposition home or self-care (01) ==
LOC: M OPP 11:39
DX: K64.9 Unspecified hemorrhoids (principal); Z98.0 Intestinal bypass and anastomosis status; D12.3 Benign neoplasm of transverse colon; K62.5 Hemorrhage of anus and rectum; Z86.010 Personal history of colon polyps; E11.9 Type 2 diabetes mellitus without complications; E03.9 Hypothyroidism, unspecified; E78.5 Hyperlipidemia, unspecified; M12.9 Arthropathy, unspecified; F41.9 Anxiety disorder, unspecified; F32.9 Major depressive disorder, single episode, unspecified; Z79.84 Long term (current) use of oral hypoglycemic drugs; Z79.899 Other long term (current) drug therapy; Z88.8 Allergy status to other drugs, medicaments and biological substances; Z98.890 Other specified postprocedural states
CPT/HCPCS: 45385

== ENCOUNTER → 2017-08-15 | Outpatient (CLI) | payer MEDICARE, OTHER | LOC: M WUC 14:59 | DX: S93.402A Sprain of unspecified ligament of left ankle, initial encounter (principal); Y92.89 Other specified places as the place of occurrence of the external cause; X58.XXXA Exposure to other specified factors, initial encounter; Y99.8 Other external cause status | CPT/HCPCS: 73610 ==

== ENCOUNTER → 2017-10-24 | Outpatient (CLI) | payer MEDICARE, OTHER | LOC: M WUC 14:57 | DX: M85.872 Other specified disorders of bone density and structure, left ankle and foot (principal); M79.89 Other specified soft tissue disorders | CPT/HCPCS: 73630 ==

== ENCOUNTER → 2018-01-08 | Outpatient (CLI) | payer MEDICARE, OTHER ==
[2018-01-08 19:28] LABS: PROSTATIC SPECIFIC AG MONITOR < 0.01 NG/ML (< 4.0)
== END ==
LOC: M SMT 13:24
DX: Z85.46 Personal history of malignant neoplasm of prostate (principal)
CPT/HCPCS: 84153

== ENCOUNTER → 2018-04-14 | Outpatient (REF) | payer MEDICARE, OTHER ==
[~2018-04-14] MED LIST changes: +DONETAB5 PO; -FENO145T PO; +FENO145T13 PO; +FLOM0.4C39 PO; -FLOM5CAP PO; +MYRB50TA PO; -ROSU10TA2 PO; +ROSU10TA5 PO; +STOO100C PO; +VITA100072 PO
[2018-04-16 08:17] LABS: LDL DIRECT 76 mg/dL (0-99)
== END ==
LOC: M LAB REF 17:20
PROVIDERS: ATTEND Internal Medicine
DX: E78.00 Pure hypercholesterolemia, unspecified (principal)

== ENCOUNTER → 2018-04-14 | Outpatient (CLI) | payer MEDICARE, OTHER ==
--- NOTE | 2018-04-14 16:35 | REP ---
Chest two views HISTORY: Cough Comparison: 10/16/2016 Linear densities are present in the lower lobes consistent with scarring. Linear density is present overlying the heart on the lateral radiograph. This also represents scarring. The heart is normal in size. The pulmonary vasculature is normal in appearance. The bony structure is intact. IMPRESSION: No acute disease. Electronically Signed by Thang Bauman MD 04/14/2018 04:27 P
== END ==
LOC: M WUC 15:01
PROVIDERS: ATTEND Internal Medicine
DX: R05 Cough (principal); E78.00 Pure hypercholesterolemia, unspecified

== ENCOUNTER → 2018-07-15 | Outpatient (CLI) | payer MEDICARE, OTHER ==
[~2018-07-15] MED LIST changes: +HYDR-3715 PO; -NORC1TAB4 PO; +NORC1TAB7 PO; -NORCOTAB PO; +VITA100018 PO; -VITA100072 PO
== END ==
LOC: M SMT 10:57
PROVIDERS: ATTEND Urology
DX: C61 Malignant neoplasm of prostate (principal)

== ENCOUNTER → 2018-09-15 | Outpatient (CLI) | payer MEDICARE, OTHER ==
--- NOTE | 2018-09-15 16:38 | REP ---
RIGHT HIP, THREE VIEWS: Three views of the right hip were performed. No acute fracture or dislocation is seen. There is mild degenerative change at the hip joint itself. Metallic clips are seen in the lower pelvis. IMPRESSION: Mild degenerative changes without fracture or dislocation. Electronically Signed by Jordan Mascorro MD 09/15/2018 04:46 P
--- NOTE | 2018-09-15 16:41 | REP ---
LUMBOSACRAL SPINE: Six views of the lumbosacral spine are performed. The study is somewhat limited to patient's inability to maintain appropriate positioning. No compression fracture is seen. There is mild anterior listhesis of L4 on L5 due to posterior facet arthropathy. There is mild diffuse spurring. There is mild disc space narrowing with subchondral sclerosis at L4-5 with moderate narrowing at the L5-S1. There is sclerosis and spurring at the posterior facet joints of L3-4 through L5-S1. Posterior elements are intact. IMPRESSION: Degenerative changes. No evidence of fracture or dislocation. Electronically Signed by Jordan Mascorro MD 09/15/2018 04:46 P
== END ==
LOC: M WUC 14:09
PROVIDERS: ATTEND Physician Assistant
DX: M51.36 Other intervertebral disc degeneration, lumbar region (principal); M16.11 Unilateral primary osteoarthritis, right hip; S30.0XXA Contusion of lower back and pelvis, initial encounter; Y93.89 Activity, other specified; Y92.89 Other specified places as the place of occurrence of the external cause; X58.XXXA Exposure to other specified factors, initial encounter; Y99.8 Other external cause status

== ENCOUNTER → 2019-01-12 | Outpatient (CLI) | payer MEDICARE, OTHER ==
[~2019-01-12] MED LIST changes: +METF-791 PO; -METF500T4 PO; +MM S100C PO; -ROSU10TA5 PO; +ROSU10TA6 PO; -STOO100C PO
== END ==
LOC: M SMT 11:26
PROVIDERS: ATTEND Nurse Practitioner Women's Health
DX: Z85.46 Personal history of malignant neoplasm of prostate (principal)

== ENCOUNTER 2019-03-16 11:14 | Day surgery (SDC) | payer MEDICARE, OTHER ==
[~2019-03-16] VITALS: Ht 180.3 cm; Wt 98.0 kg
[~2019-03-16 11:14] MED LIST changes: +HORMONE SHOT; +LEXA1TAB2 PO; +METF500T13 PO; +MYRB25TA PO; +NS 1,000 ML IV ONE
[2019-03-16] MEDS ORDERED: LIDOCAINE 2% INJ 100 MG/5 ML SDV (FOR ANES.) As Ordered ONE (13:23)
[2019-03-16] MEDS ORDERED: PROPOFOL 200 MG/20 ML VIAL As Ordered ONE ×2 (13:23→14:00)
--- NOTE | 2019-03-16 14:06 | ROOR ---
Patient Name: Jose Sheffield Procedure Date: 03/16/2019 1:07 PM Date of : 1935 Age: 83 Room: [facility] Gender: Male Note Status: Finalized Procedure: Upper GI endoscopy Indications: Chronic cough, Dysphagia Providers: Collin Leroy MD Referring MD: CORAZON CRUZ JR, MD Requesting Provider: Medicines: Monitored Anesthesia Care Complications: No immediate complications. Procedure: Pre-Anesthesia Assessment: - Prior to the procedure, a History and Physical was performed, and patient medications and allergies were reviewed. The patient is competent. The risks and benefits of the procedure and the sedation options and risks were discussed with the patient. All questions were answered and informed consent was obtained. Patient identification and proposed procedure were verified by the physician, the nurse and the anesthesiologist in the procedure room. Mental Status Examination: alert and oriented. Airway Examination: normal oropharyngeal airway and neck mobility. Prophylactic Antibiotics: The patient does not require prophylactic antibiotics. Prior Anticoagulants: The patient has taken no previous anticoagulant or antiplatelet agents. ASA Grade Assessment: III - A patient with severe systemic disease. After reviewing the risks and benefits, the patient was deemed in satisfactory condition to undergo the procedure. The anesthesia plan was to use monitored anesthesia care (MAC). Immediately prior to administration of medications, the patient was re-assessed for adequacy to receive sedatives. The heart rate, respiratory rate, oxygen saturations, blood pressure, adequacy of pulmonary ventilation, and response to care were monitored throughout the procedure. The physical status of the patient was re-assessed after the procedure. The Endoscope was introduced through the mouth, and advanced to the second part of duodenum. The upper GI endoscopy was accomplished without difficulty. The patient tolerated the procedure well. Findings: The examined esophagus was normal. Multiple 4 to 8 mm sessile polyps with no bleeding and no stigmata of recent bleeding were found on the greater curvature of the stomach. The first portion of the duodenum and second portion of the duodenum were normal. Impression: - Normal esophagus. - Multiple gastric polyps. - Normal first portion of the duodenum and second portion of the duodenum. - No specimens collected. Recommendation: - Discharge patient to home. - Resume previous diet. - Continue present medications. Collin Leroy MD Collin Leroy MD 03/16/2019 2:06:25 PM Electronically signed by Collin Leroy MD Number of Addenda: 0 Note Initiated On: 03/16/2019 1:07 PM Estimated Blood Loss: Estimated blood loss: none.
--- NOTE | 2019-03-16 14:14 | ROOR ---
Patient Name: Jose Sheffield Procedure Date: 03/16/2019 1:08 PM Date of : 1935 Age: 83 Room: [facility] Gender: Male Note Status: Finalized Procedure: Colonoscopy Indications: High risk colon cancer surveillance: Personal history of adenoma (10 mm or greater in size), Last colonoscopy: 2015, Patient had right hemicolectomy 2005 for polyps Providers: Collin Leroy MD Referring MD: CORAZON CRUZ JR, MD Requesting Provider: Medicines: Monitored Anesthesia Care Complications: No immediate complications. Procedure: Pre-Anesthesia Assessment: - Prior to the procedure, a History and Physical was performed, and patient medications and allergies were reviewed. The patient is competent. The risks and benefits of the procedure and the sedation options and risks were discussed with the patient. All questions were answered and informed consent was obtained. Patient identification and proposed procedure were verified by the physician, the nurse and the anesthesiologist in the procedure room. Mental Status Examination: alert and oriented. Airway Examination: normal oropharyngeal airway and neck mobility. Prophylactic Antibiotics: The patient does not require prophylactic antibiotics. Prior Anticoagulants: The patient has taken no previous anticoagulant or antiplatelet agents. ASA Grade Assessment: III - A patient with severe systemic disease. After reviewing the risks and benefits, the patient was deemed in satisfactory condition to undergo the procedure. The anesthesia plan was to use monitored anesthesia care (MAC). Immediately prior to administration of medications, the patient was re-assessed for adequacy to receive sedatives. The heart rate, respiratory rate, oxygen saturations, blood pressure, adequacy of pulmonary ventilation, and response to care were monitored throughout the procedure. The physical status of the patient was re-assessed after the procedure. The Colonoscope was introduced through the anus and advanced to the ileocolonic anastomosis. The colonoscopy was performed without difficulty. The patient tolerated the procedure well. The quality of the bowel preparation was good. Findings: The perianal and digital rectal examinations were normal. There was evidence of a prior end-to-side ileo-colonic anastomosis in the proximal transverse colon. This was patent and was characterized by healthy appearing mucosa. The anastomosis was not traversed. The exam was otherwise without abnormality. Impression: - Patent end-to-side ileo-colonic anastomosis, characterized by healthy appearing mucosa. - The examination was otherwise normal. - No specimens collected. Recommendation: - Discharge patient to home. - Resume previous diet. - Continue present medications. - Return to my office PRN. Collin Leroy MD Collin Leroy MD 03/16/2019 2:14:14 PM Electronically signed by Collin Leroy MD Number of Addenda: 0 Note Initiated On: 03/16/2019 1:08 PM Estimated Blood Loss: Estimated blood loss: none.
[2019-03-16 14:30] VITALS: BP 152/86
== END 2019-03-16 15:20 | disposition home or self-care (01) ==
LOC: M OPP 11:14
PROVIDERS: ATTEND Surgery
DX: Z12.11 Encounter for screening for malignant neoplasm of colon (principal); Z86.010 Personal history of colon polyps; Z98.0 Intestinal bypass and anastomosis status; Z79.4 Long term (current) use of insulin; Z79.899 Other long term (current) drug therapy; Z88.5 Allergy status to narcotic agent; Z88.8 Allergy status to other drugs, medicaments and biological substances; Z87.891 Personal history of nicotine dependence
CPT/HCPCS: 43235; G0105

== ENCOUNTER → 2019-04-23 | Outpatient (CLI) | payer MEDICARE, OTHER ==
[~2019-04-23] MED LIST changes: -FENO145T13 PO; +FENO145T7 PO; -NS 1,000 ML IV ONE
== END ==
LOC: M PLALAB 12:56
PROVIDERS: ATTEND Nurse Practitioner Women's Health
DX: Z85.46 Personal history of malignant neoplasm of prostate (principal)

== ENCOUNTER 2019-05-06 21:44 | Emergency (ER) | payer MEDICARE, OTHER ==
[~2019-05-06] VITALS: Ht 180.3 cm; Wt 100.0 kg
[2019-05-06] MEDS ORDERED: LEVO88TA3 (21:52)
--- NOTE | 2019-05-06 23:04 | REPVR ---
PROCEDURE INFORMATION: Exam: CT Head Without Contrast Exam date and time: 05/06/2019 10:48 PM Age: 83 years old Clinical indication: Dizziness TECHNIQUE: Imaging protocol: Computed tomography of the head without contrast. Radiation optimization: All CT scans at this facility use at least one of these dose optimization techniques: automated exposure control; mA and/or kV adjustment per patient size (includes targeted exams where dose is matched to clinical indication); or iterative reconstruction. COMPARISON: CT Head without contrast 10/16/2016 10:08 PM FINDINGS: Brain: There is moderate parenchymal volume loss. White matter changes are demonstrated in the subcortical, centrum semiovale and periventricular white matter consistent with age related small vessel white matter angiopathic gliosis. Ventricles: The degree of ventricular dilatation is normal for age and/or degree of atrophy present. Bones/joints: Unremarkable. No acute fracture. Sinuses: Visualized sinuses are unremarkable. No fluid levels. Mastoid air cells: Visualized mastoid air cells are well aerated. Soft tissues: Unremarkable. IMPRESSION: 1. There is moderate parenchymal volume loss. White matter changes are demonstrated in the subcortical, centrum semiovale and periventricular white matter consistent with age related small vessel white matter angiopathic gliosis. 2. The degree of ventricular dilatation is normal for age and/or degree of atrophy present. Electronically signed by: Pete To On 05/06/2019 23:04:05 PM
[2019-05-06 23:24] LABS: BASO % 0.7 % (0.0-1.0); EOS # 0.1 10^3/uL (0.0-0.5); EOS % 2.1 % (0.0-3.0); HEMATOCRIT 40.9 % (42.0-52.0); HEMOGLOBIN 13.3 g/dl (13.5-17.5); LYMPH # 0.8 10^3/uL (1.5-5.0); LYMPH % 13.3 % (24.0-44.0); MEAN CORPUSCULAR HEMOGLOBIN 29.7 pg (27.0-33.0); MEAN CORPUSCULAR HGB CONC 32.5 g/dl (32.0-36.5); MEAN CORPUSCULAR VOLUME 91.3 fl (80.0-96.0); MONO # 0.3 10^3/uL (0.0-0.8); MONO % 5.8 % (0.0-5.0); NEUTROPHILS # 4.4 10^3/uL (1.5-8.5); NEUTROPHILS % 76.7 % (36.0-66.0); PLATELET COUNT, AUTOMATED 134 10^3/uL (150-450); RED BLOOD COUNT 4.48 10^6/uL (4.30-6.10); WHITE BLOOD COUNT 5.7 10^3/uL (4.0-10.0)
[2019-05-06] MEDS ORDERED: MECLIZINE 25 MG TABLET PO ONE (23:30)
[2019-05-06 23:46] LABS: ALBUMIN 3.9 GM/DL (3.2-5.2); ALT/SGPT 46 U/L (12-78); BILIRUBIN,DIRECT 0.1 MG/DL (0.0-0.2); BILIRUBIN,TOTAL 0.3 MG/DL (0.2-1.0); BLOOD UREA NITROGEN 25 MG/DL (7-18); CALCIUM LEVEL 9.7 MG/DL (8.8-10.2); CARBON DIOXIDE LEVEL 26 MEQ/L (21-32); CHLORIDE LEVEL 107 MEQ/L (98-107); CK-MB VALUE MASS 6.1 NG/ML (<3.6); CPK CREATINE PHOSPHOKINASE 133 U/L (39-308); CREATININE FOR GFR 0.76 MG/DL (0.70-1.30); GLOMERULAR FILTRATION RATE > 60.0 (>35); GLUCOSE, FASTING 149 MG/DL (70-100); LIPASE 183 U/L (73-393); MB/CK RELATIVE INDEX 4.59 (< OR =4); POTASSIUM SERUM 4.2 MEQ/L (3.5-5.1); SODIUM LEVEL 139 MEQ/L (136-145); TROPONIN I < 0.02 NG/ML (< 0.10)
[2019-05-07 01:50] VITALS: O2SAT 92
[2019-05-07] MEDS ORDERED: MECL1TAB31 PO (01:58)
[2019-05-07] MEDS ORDERED: FLON1SPR NARES (01:58)
[2019-05-07 02:09] VITALS: BP 139/83
--- NOTE | 2019-05-07 05:57 | ECGEPIP ---
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
== END 2019-05-07 02:18 | disposition home or self-care (01) ==
LOC: M ED 21:44
DX: R42 Dizziness and giddiness (principal); H61.23 Impacted cerumen, bilateral; E11.9 Type 2 diabetes mellitus without complications; E78.5 Hyperlipidemia, unspecified; E03.9 Hypothyroidism, unspecified; Z79.899 Other long term (current) drug therapy; Z79.890 Hormone replacement therapy; Z79.84 Long term (current) use of oral hypoglycemic drugs; Z88.5 Allergy status to narcotic agent; Z88.8 Allergy status to other drugs, medicaments and biological substances

== ENCOUNTER 2019-05-17 17:14 | Inpatient (IN) | payer MEDICARE, OTHER ==
[~2019-05-17] VITALS: Ht 180.3 cm; Wt 98.7 kg
[~2019-05-17 17:14] MED LIST changes: +FLON1SPR NARES; +LEVO88TA3 PO; +MECL1TAB31 PO
[2019-05-17] MEDS ORDERED: OSEL75CA2 PO (17:32)
[2019-05-17] MEDS ORDERED: DOXY100C37 PO (17:32)
--- NOTE | 2019-05-17 18:02 | REP ---
Clinical: Trauma. Fall. Technique: AP, lateral, bilateral oblique views of the left ankle. Findings: There is an oblique nondisplaced fracture of the distal fibular metadiaphysis with overlying soft tissue swelling. Ankle mortise intact. Impression: Oblique nondisplaced fracture of the distal fibular metadiaphysis with soft tissue swelling. Electronically Signed by Jamison Meléndez MD 05/17/2019 05:53 P
[2019-05-17 19:14] LABS: HEMATOCRIT 38.1 % (42.0-52.0); MEAN CORPUSCULAR HEMOGLOBIN 29.7 pg (27.0-33.0); MEAN CORPUSCULAR HGB CONC 34.1 g/dl (32.0-36.5); MEAN CORPUSCULAR VOLUME 87.2 fl (80.0-96.0); PLATELET COUNT, AUTOMATED 134 10^3/uL (150-450); RED BLOOD COUNT 4.37 10^6/uL (4.30-6.10)
[2019-05-17 19:49] LABS: BLOOD UREA NITROGEN 17 MG/DL (7-18); CALCIUM LEVEL 9.9 MG/DL (8.8-10.2); CARBON DIOXIDE LEVEL 29 MEQ/L (21-32); CHLORIDE LEVEL 100 MEQ/L (98-107); CREATININE FOR GFR 0.79 MG/DL (0.70-1.30); GLOMERULAR FILTRATION RATE > 60.0 (>35); GLUCOSE, FASTING 150 MG/DL (70-100); POTASSIUM SERUM 3.9 MEQ/L (3.5-5.1); SODIUM LEVEL 133 MEQ/L (136-145)
--- NOTE | 2019-05-17 19:54 | REP ---
Clinical: Near-syncopal episode. Comparison: 04/14/2018. Findings: Examination is limited by portable technique and poor inspiratory effort. Subtle basilar atelectasis cannot be excluded. No obvious effusion. No pneumothorax. Skeletal structures intact. Impression: Bibasilar atelectasis suggested. Electronically Signed by Jamison Meléndez MD 05/17/2019 07:46 P
[2019-05-17 20:01] LABS: CK-MB VALUE MASS 8.3 NG/ML (<3.6); CPK CREATINE PHOSPHOKINASE 452 U/L (39-308); MB/CK RELATIVE INDEX 1.84 (< OR =4); TROPONIN I < 0.02 NG/ML (< 0.10)
--- NOTE | 2019-05-17 20:46 | HPEPDOC ---
General Date of Admission 05/17/19 Date of Service: May 17, 2019 Chief Complaint The patient is a 83-year-old male admitted with a reason for visit of Near Syncope. Source: Patient, Family Exam Limitations: Mild cognitive slowing Timing/Duration: 4-6 hours Severity: Moderate Associated Symptoms: Nausea, Vomiting, Weakness, Mechanical fall History of Present Illness Patient is 83 years old male with past medical history of type 2 diabetes, hypertension, dementia, morbid obesity presented hospital after mechanical fall. According to his family member patient was diagnosed earlier today with influenza in urgent care, when they came home he developed mechanical fall due to legs weakness. In ER patient was found to have left distal tibial fracture, nondisplaced, splint was placed. Also patient has been complaining on the muscle soreness, fatigue and cough for past 2 days. Patient doesn't have leukocytosis, creatinine phosphokinase 450. Patient denied fever, chest pain, nausea vomiting, palpitations, diarrhea. Home Medications Scheduled Cyanocobalamin (Vitamin B-12) (Vitamin B-12) 1,000 Mcg Tab, 1,000 MCG PO DAILY, (Reported) Doxycycline Monohydrate (Doxycycline Monohydrate) 100 Mg Capsule, 100 MG PO BID, (Reported) Escitalopram Oxalate (Lexapro) 20 Mg Tablet, 20 MG PO DAILY, (Reported) Fenofibrate Nanocrystallized (Fenofibrate) 145 Mg Tablet, 145 MG PO DAILY, (Reported) Fluticasone Propionate (Flonase Allergy Relief) 9.9 Ml [place].susp, 2 SPRAY NARES DAILY Levothyroxine Sodium (Levothyroxine Sodium) 88 Mcg Tablet, 88 MCG PO DAILY, (Reported) Metformin HCl (Metformin HCl) 500 Mg Tablet, 500 MG PO BID, (Reported) Oseltamivir Phosphate (Oseltamivir Phosphate) 75 Mg Capsule, 75 MG PO BID, (Reported) Sitagliptin Phosphate (Januvia) 100 Mg Tab, 100 MG PO DAILY, (Reported) Tamsulosin HCl (Flomax) 0.4 Mg Cap, 0.8 MG PO QAM, (Reported) Allergies Coded Allergies: atorvastatin (Verified Allergy, Unknown, 05/06/19) gemfibrozil (Verified Allergy, Unknown, 05/06/19) niacin (Verified Allergy, Unknown, 05/06/19) Opioids - Morphine Analogues (Verified Adverse Reaction, Severe, Delirium, 05/17/19) alprazolam (Verified Adverse Reaction, Intermediate, delirium, 05/06/19) hydrocodone (Verified Adverse Reaction, Intermediate, delirium, 05/06/19) Past Medical History Medical History BENIGN ESSENTIAL HYPERTENSION PURE HYPERCHOLESTEROLEMIA METABOLIC SYNDROME X TYPE 2 DIABETES MELLITUS HYPOTHYROIDISM PSORIASIS Surgical History COLONOSCOPY 09/29/2013 HISTORY OF RIGHT HEMICOLECTOMY FOR NON ENDOSCOPIC RESECTION OF ADENOMA TRUS BX 05/10/26 Family History FATHER: MOTHER: , DIAGNOSED WITH HYPERTENSION, STROKE SON(S): ALIVE, OCD 2 SON(S) , 1 DAUGHTER(S) . Social History * Smoker: Denies Alcohol: Denies Drugs: denies Pets in the home: Cat(s) A-FIB/CHADSVASC A-FIB History Current/History of A-Fib/PAF?: No Current PO Anticoag Therapy: No Review of Systems Constitutional: Reports: Malaise; Denies: Chills, Fever Eyes: Denies: Pain, Vision change ENT: Denies: Ear Pain Skin: Denies: Rash, Lesions Pulmonary: Reports: Cough; Denies: Dyspnea Cardiovascular: Denies: Chest Pain Gastrointestinal: Denies: Nausea, Vomiting Genitourinary: Denies: Dysuria Hematologic: Denies: Bruising, Bleeding Excessively Endocrine: Denies: Polydipsia, Polyphagia Musculoskeletal: Reports: Leg Pain (left distal leg pain) Neurological: Denies: Weakness, Numbness Psych: Reports: Mood Normal Physical Examination General Exam: Positive: Alert, Cooperative, Mild Distress, Moderate Distress Eye Exam: Positive: PERRLA ENT Exam: Positive: Atraumatic Neck Exam: Positive: Supple; Negative: JVD Chest Exam: Positive: Rhonchi; Negative: Clear to auscultation Heart Exam: Positive: Rate Normal Telemetry: Positive: No significant arrhythmia Abdomen Exam: Positive: Normal bowel sounds Extremity Exam: Positive: Tenderness (over the left distal leg); Negative: Clubbing, Cyanosis Skin Exam: Positive: Nl turgor and temperature Neuro Exam: Positive: Strength at 5/5 X4 ext, Cranial Nerves 3-12 NL Psych Exam: Negative: Mental status NL (patient has advanced dementia) Vital Signs Vital Signs Date Time Temp Pulse Resp B/P (MAP) Pulse Ox O2 Delivery O2 Flow Rate FiO2 05/17/19 18:30 98 147/89 (108) 94 Nasal Cannula 2.0 05/17/19 17:31 99.7 20 Laboratory Data Labs 24H Laboratory Tests 2 05/17/19 19:02: Anion Gap 4L, Glomerular Filtration Rate > 60.0, Calcium Level 9.9, Total Creatine Kinase 452H, Creatine Kinase MB 8.3H, Creatine Kinase MB Relative Index 1.84, Troponin I < 0.02, Thyroid Stimulating Hormone (TSH) 2.220 05/17/19 19:03: Nucleated Red Blood Cells % (auto) 0.0 CBC/BMP Laboratory Tests 05/17/19 19:02 05/17/19 19:03 Assessment/Plan Patient is 83 years old male with past medical history of type 2 diabetes, hypertension, dementia, morbid obesity presented hospital after mechanical fall. According to his family member patient was diagnosed earlier today with influenza in urgent care, when they came home he developed mechanical fall due to legs weakness. In ER patient was found to have left distal tibial fracture, nondisplaced, splint was placed. Also patient has been complaining on the muscle soreness, fatigue and cough for past 2 days. Patient doesn't have leukocytosis, creatinine phosphokinase 450. Patient denied fever, chest pain, nausea vomiting, palpitations, diarrhea Problems (1) Influenza Status: Acute Problem Text: Tamiflu 75 mg twice a day for 5 days Chest x-ray negative for any acute pulmonary infiltrate IV fluid (2) Closed fracture of left distal fibula Status: Acute Problem Text: Splint was placed in the emergency room Consider orthopedic consult in the morning PT/OT (3) Weakness Status: Acute Problem Text: Secondary to flu PT/OT (4) Diabetes mellitus type 2 in obese Status: Chronic Problem Text: Insulin sliding scale Diabetes diet Plan / VTE VTE Prophylaxis Ordered?: Yes SARAH ZARATE DO May 17, 2019 20:46
[2019-05-17] MEDS ORDERED: GLUCAGON FOR INJ 1 MG VIAL (J1610) SC PRN (21:00)
[2019-05-17] MEDS ORDERED: GLUCOSE 4 GM CHEW TABLET PO PRN (21:00)
[2019-05-17] MEDS ORDERED: DEXTROSE 50% 50 ML SYRINGE IV PRN (21:00)
[2019-05-17 21:40] VITALS: BP 134/89
[2019-05-17] MEDS: NS 1,000 ML IV SCH (22:14)
[2019-05-17] MEDS: HumaLOG INSULIN (NovoLOG) PER UNIT SC SCH (23:44)
[2019-05-17] MEDS: OSELTAMIVIR PHOSPHATE 75 MG CAP (TAMIFLU) PO SCH (23:45)
[2019-05-18 05:11] VITALS: BP 137/89
[2019-05-18] MEDS: LEVOTHYROXINE 88MCG TABLET (0.088 MG) PO SCH (06:33)
[2019-05-18 06:52] LABS: HEMATOCRIT 37.2 % (42.0-52.0); HEMOGLOBIN 12.6 g/dl (13.5-17.5); MEAN CORPUSCULAR HEMOGLOBIN 29.7 pg (27.0-33.0); MEAN CORPUSCULAR HGB CONC 33.9 g/dl (32.0-36.5); MEAN CORPUSCULAR VOLUME 87.7 fl (80.0-96.0); PLATELET COUNT, AUTOMATED 144 10^3/uL (150-450); RED BLOOD COUNT 4.24 10^6/uL (4.30-6.10); WHITE BLOOD COUNT 6.2 10^3/uL (4.0-10.0)
[2019-05-18 07:09] LABS: BLOOD UREA NITROGEN 16 MG/DL (7-18); CALCIUM LEVEL 9.6 MG/DL (8.8-10.2); CARBON DIOXIDE LEVEL 28 MEQ/L (21-32); CHLORIDE LEVEL 104 MEQ/L (98-107); GLOMERULAR FILTRATION RATE > 60.0 (>35); GLUCOSE, FASTING 118 MG/DL (70-100); MAGNESIUM LEVEL 1.8 MG/DL (1.8-2.4); POTASSIUM SERUM 3.7 MEQ/L (3.5-5.1); SODIUM LEVEL 135 MEQ/L (136-145)
[2019-05-18] MEDS: HumaLOG INSULIN (NovoLOG) PER UNIT SC SCH ×5 (07:30→22:10)
[2019-05-18] MEDS: NS 1,000 ML IV SCH (07:39)
[2019-05-18] MEDS: ESCITALOPRAM OXALATE 10 MG TAB (LEXAPRO) PO SCH ×2 (07:40→13:14)
[2019-05-18] MEDS: TAMSULOSIN 0.4 MG CAP PO SCH ×2 (07:40→13:14)
[2019-05-18] MEDS: HEPARIN SOD (PORCINE) 5000 UNITS/ML VIAL (J1644 PER 1000UNITS) SC SCH ×3 (07:40→22:10)
[2019-05-18] MEDS: OSELTAMIVIR PHOSPHATE 75 MG CAP (TAMIFLU) PO SCH ×3 (07:40→22:08)
[2019-05-18] MEDS: FENOFIBRATE 145 MG TAB (TRICOR) PO SCH ×2 (07:41→13:14)
[2019-05-18] MEDS ORDERED: ALBUTEROL SULFATE 2.5 MG/0.5 ML INH NEB SOLN NEB PRN (08:15)
[2019-05-18] MEDS ORDERED: SITagliptin 50 MG TAB (JANUVIA) PO SCH (09:00)
[2019-05-18] MEDS: CYANOCOBALAMIN 500 MCG TAB PO SCH (13:15)
[2019-05-18] MEDS: FLUTICASONE PROP 0.05% NASAL SPRAY 16 GM (FLONASE) NARES SCH (13:22)
--- NOTE | 2019-05-18 15:15 | IPNPDOC ---
Subjective Date Seen The patient was seen on 05/18/19. Subjective Chief Complaint/HPI Mr. Sheffield is an 83 year old male who was admitted after a fall and subsequent non-displaced fracture of the L distal fibular. Pt is seen sitting up in bed this morning. He denied any pain in the L ankle or foot. He reported the only pain is from being restricted to his hospital bed. General: Reports: Normal Appetite; Denies: Chills, Night Sweats, Fatigue, Malaise Constitutional: Denies: Chills, Fever, Night Sweats Eyes: Denies: Pain ENT: Denies: Head Aches Skin: Denies: Rash Pulmonary: Denies: Dyspnea, Cough Cardiovascular: Denies: Chest Pain, Palpitations, Orthopnea, Paroxysmal Noc. Dyspnea, Lt Headedness Gastrointestinal: Denies: Nausea, Vomiting, Abdominal Pain, Diarrhea, Constipation Genitourinary: Denies: Dysuria, Retention Hematologic: Denies: Bruising Musculoskeletal: Denies: Neck Pain, Back Pain, Leg Pain, Foot Pain, Joint Pain, Muscle Pain, Spasms Psych: Reports: Mood Normal Objective Physical Examination General Exam: Positive: Alert, Cooperative, No Acute Distress Eye Exam: Positive: PERRLA, Conjunctiva & lids normal, EOMI; Negative: Sclera icteric ENT Exam: Positive: Atraumatic, Mucous membr. moist/pink, Pharynx Normal Neck Exam: Positive: Supple; Negative: JVD, thyromegaly Chest Exam: Positive: Wheezing; Negative: Clear to auscultation Heart Exam: Positive: Rate Normal, Murmurs (2/6 SM with S1S2 intact ); Negative: Gallops, Rubs Telemetry: Positive: No significant arrhythmia Abdomen Exam: Positive: Normal bowel sounds, Soft; Negative: Tenderness Extremity Exam: Positive: Other (casting L ankle ); Negative: Clubbing, Cyanosis, Edema Skin Exam: Positive: Nl turgor and temperature Neuro Exam: Positive: Normal Speech, Cranial Nerves 3-12 NL Psych Exam: Positive: Mental status NL (patient has advanced dementia), Mood NL; Negative: Oriented x 3 Assessment /Plan Assessment Mr. Sheffield is an 83 year old male who was admitted after a fall and subsequent non-displaced fracture of the L distal fibular. 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 Per family, pt was diagnosed with influenza at urgent care prior to his fall. At home, pt fell due to weakness in his legs. Ankle, complete LEFT Impression: Oblique nondisplaced fracture of the distal fibular metadiaphysis with soft tissue swelling. Chest, 1 view Impression: Bibasilar atelectasis suggested. Nondisplaced Fx of the left distal fibular - soft cast over L ankle placed in ED; L leg elevated - ortho on consult; will assess and provide recommendations - pain management prn Influenza - Continue Tamiflu - Tylenol prn fever T2D - hold all PO anti-glycemics - ISS with FBS achs HTN - controlled, no home medications at this time. BPH - continue Flomax Dementia with Depression - advanced dementia, probably untreated due to advanced stage - continue Escitalopram for depression Vitamin B12 def. - continue supplement Hypothyroidism - continue Synthroid Plan/VTE VTE Prophylaxis Ordered?: Yes (Heparin ) VS, I&O, 24H, Fishbone Vital Signs/I&O Vital Signs Date Time Temp Pulse Resp B/P (MAP) Pulse Ox O2 Delivery O2 Flow Rate FiO2 05/18/19 14:00 98.6 81 16 91 05/18/19 05:11 137/89 (105) Nasal Cannula 2.0 I&O- Last 24 Hours up to 6 AM 05/18/19 06:00 Intake Total 0 ml Output Total 100 ml Balance -100 ml Laboratory Data 24H LABS Laboratory Tests 2 05/17/19 19:02: Anion Gap 4L, Glomerular Filtration Rate > 60.0, Calcium Level 9.9, Total Creatine Kinase 452H, Creatine Kinase MB 8.3H, Creatine Kinase MB Relative Index 1.84, Troponin I < 0.02, Thyroid Stimulating Hormone (TSH) 2.220 05/17/19 19:03: Nucleated Red Blood Cells % (auto) 0.0 05/17/19 22:19: Bedside Glucose (Misc Panel) 139H 05/18/19 06:02: Anion Gap 3L, Glomerular Filtration Rate > 60.0, Calcium Level 9.6, Nucleated Red Blood Cells % (auto) 0.0, Magnesium Level 1.8 05/18/19 11:24: Bedside Glucose (Misc Panel) 162H CBC/BMP Laboratory Tests 05/17/19 19:02 05/17/19 19:03 05/18/19 06:02 JOCELYN MILLS PA-C May 18, 2019 15:15
--- NOTE | 2019-05-18 17:45 | CR ---
DATE OF CONSULTATION: 05/18/2019 REASON FOR CONSULTATION: Left ankle fracture. HISTORY OF PRESENT ILLNESS: He is an 83-year-old male who slipped in his bathroom last evening and sustained an injury to his left ankle. He has been recently diagnosed with the flu. Nonetheless, he had basically a mechanical fall in the bathroom after slipping and injured his left ankle. He was brought to the emergency room and found to have a left distal fibula fracture. He was splinted and he is being admitted because he is unable to ambulate on his own independently and he also has been complaining of some generalized weakness possibly related to his flu, so he is being evaluated on the medical service and I was asked to see him for this ankle injury. PAST MEDICAL HISTORY: Significant for some dementia, hypertension, hypercholesterolemia, type 2 diabetes, hypothyroidism, psoriasis. He does have a history of prostate cancer. He is followed at by urology here with Dr. Miller. PAST SURGICAL HISTORY: Colonoscopy, right hemicolectomy, and prostate biopsy. SOCIAL HISTORY: He lives here locally. He is . He lives with his . He does have a walker. He has injured his left ankle in the past with a sprain so he has used that walker in the past to help him ambulate but he is a bit unsteady with his ability to use ambulatory supports. HOME MEDICATIONS: Include levothyroxine, Lexapro, vitamin B12, metformin, Januvia, tamsulosin. He is also being treated for his influenza. ALLERGIES: ATORVASTATIN, GEMFIBROZIL, NIACIN, OPIOIDS, ALPRAZOLAM, HYDROCODONE. PHYSICAL EXAMINATION: He is a pleasant, elderly male. He is here with his daughter in the room when I examine him. Presently, his vital signs show a temperature of 99.1, pulse of 86, respirations of 17, blood pressure 137/89, oxygen saturation is 92% on two liters nasal cannula. His HEENT examination was benign. Normocephalic, atraumatic. He could elevate his arms up overhead. There is no pain, deformity, crepitance, or swelling or tenderness of the shoulders, clavicles, elbows, wrists, forearms. He can do straight leg raising bilaterally without irritability of his hips and his right lower extremity is atraumatic. Left lower extremity has a posterior plaster splint around the ankle. He has a strong palpable dorsalis pedis pulse. He can move his toes well with normal sensation. There is tenderness laterally. No tenderness medially. X-rays of the left ankle show an nondisplaced distal fibula fracture. The mortise is intact. IMPRESSION: Left ankle fracture. This appears to be a stable pattern and nondisplaced, so I would recommend continued nonsurgical management with splinting and eventual cast placement once the swelling has diminished a bit. Therapy could work with him but I recommend he stay non-weightbearing on his left leg. I think placement is going to be an issue for him as clearly he is not physically capable of caring for himself at home and he may need short-term placement and I have discussed this with the patient and with his daughter as well and the social workers who will be working with him on that.
[2019-05-18 20:57] VITALS: BP 144/86
[2019-05-19 06:11] VITALS: BP 159/86
[2019-05-19] MEDS: LEVOTHYROXINE 88MCG TABLET (0.088 MG) PO SCH (06:17)
[2019-05-19] MEDS: HumaLOG INSULIN (NovoLOG) PER UNIT SC SCH ×4 (07:30→21:00)
[2019-05-19] MEDS: FLUTICASONE PROP 0.05% NASAL SPRAY 16 GM (FLONASE) NARES SCH (09:00)
[2019-05-19] MEDS: ESCITALOPRAM OXALATE 10 MG TAB (LEXAPRO) PO SCH (09:19)
[2019-05-19] MEDS: TAMSULOSIN 0.4 MG CAP PO SCH (09:19)
[2019-05-19] MEDS: OSELTAMIVIR PHOSPHATE 75 MG CAP (TAMIFLU) PO SCH ×2 (09:19→22:03)
[2019-05-19] MEDS: FENOFIBRATE 145 MG TAB (TRICOR) PO SCH (09:20)
[2019-05-19] MEDS: CYANOCOBALAMIN 500 MCG TAB PO SCH (09:20)
[2019-05-19] MEDS: HEPARIN SOD (PORCINE) 5000 UNITS/ML VIAL (J1644 PER 1000UNITS) SC SCH ×2 (09:20→22:02)
--- NOTE | 2019-05-19 11:13 | IPNPDOC ---
Text Note Date of Service The patient was seen on 05/19/19. NOTE Subjective Chief Complaint/HPI Mr. Sheffield is an 83 year old male who was admitted after a fall and subsequent non-displaced fracture of the L distal fibular. Pt is seen sitting up in bed this morning. He reported he is doing fine. No pain in his ankle or foot. We discussed ortho's recommendation for cast outpt and he is happy about that. Objective Physical Examination General Exam: Positive: Alert, Cooperative, No Acute Distress Eye Exam: Positive: PERRLA, Conjunctiva & lids normal, EOMI; Negative: Sclera icteric ENT Exam: Positive: Atraumatic, Mucous membr. moist/pink, Pharynx Normal Neck Exam: Positive: Supple; Negative: JVD, thyromegaly Chest Exam: Positive: Wheezing; Heart Exam: Positive: Rate Normal, Murmurs (2/6 SM with S1S2 intact ); Negative: Gallops, Rubs Telemetry: Positive: No significant arrhythmia Abdomen Exam: Positive: Normal bowel sounds, Soft; Negative: Tenderness Extremity Exam: Positive: Other (casting L ankle, mild swelling ); Negative: Clubbing, Cyanosis Skin Exam: Positive: Nl turgor and temperature Neuro Exam: Positive: Normal Speech, Cranial Nerves 3-12 NL Psych Exam: Positive: Mental status NL (patient has advanced dementia), Mood NL; Negative: Oriented x 3 Assessment /Plan Assessment Mr. Sheffield is an 83 year old male who was admitted after a fall and subsequent non-displaced fracture of the L distal fibular. 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 Per family, pt was diagnosed with influenza at urgent care prior to his fall. At home, pt fell due to weakness in his legs. Ankle, complete LEFT Impression: Oblique nondisplaced fracture of the distal fibular metadiaphysis with soft tissue swelling. Chest, 1 view Impression: Bibasilar atelectasis suggested. Nondisplaced Fx of the left distal fibular - soft cast over L ankle placed in ED; L leg elevated - seen by Dr. Handy; NWB, keep splint in place and cast once the swelling improves - continues to deny pain; pain management prn Influenza - Continue Tamiflu - Tylenol prn fever T2D - hold all PO anti-glycemics - ISS with FBS achs HTN - controlled, no home medications at this time. BPH - continue Flomax Dementia with Depression - advanced dementia, probably untreated due to advanced stage - continue Escitalopram for depression Vitamin B12 def. - continue supplement Hypothyroidism - continue Synthroid Plan/VTE VTE Prophylaxis Ordered?: Yes (Heparin ) Disposition: Discharge to [facility] for rehab 24-48hrs. IKt, have independently examined this patient and performed my own physical exam, as well as reviewed the documentation and edited where necessary. I have discussed in detail with the nurse practitioner the findings and plan of treatment as documented by the nurse practitioner . I will continue to follow the patient during this hospital stay VS,[place]ane, I+O VS, [place], I+O Vital Signs Date Time Temp Pulse Resp B/P (MAP) Pulse Ox O2 Delivery O2 Flow Rate FiO2 05/19/19 06:11 98.3 79 16 159/86 (110) 94 Nasal Cannula 2.0 I&O- Last 24 Hours up to 6 AM 05/19/19 06:00 Intake Total 1930 ml Output Total 0 ml Balance 1930 ml JOCELYN MILLS PA-C May 19, 2019 11:13 KT ZARATE DO May 19, 2019 19:25
[2019-05-19 14:00] VITALS: BP 118/83
[2019-05-19] MEDS: ACETAMINOPHEN TAB 650MG DOSE (2X325MG) PO PRN ×2 (16:05→22:02)
[2019-05-19 22:00] VITALS: BP 158/88
[2019-05-20 06:00] VITALS: BP 126/76
[2019-05-20] MEDS: ACETAMINOPHEN TAB 650MG DOSE (2X325MG) PO PRN ×2 (06:20→18:13)
[2019-05-20] MEDS: LEVOTHYROXINE 88MCG TABLET (0.088 MG) PO SCH (06:20)
[2019-05-20 08:00] VITALS: BP 134/78
[2019-05-20] MEDS: HumaLOG INSULIN (NovoLOG) PER UNIT SC SCH ×4 (08:33→20:28)
[2019-05-20] MEDS: FLUTICASONE PROP 0.05% NASAL SPRAY 16 GM (FLONASE) NARES SCH (09:00)
[2019-05-20] MEDS: CYANOCOBALAMIN 500 MCG TAB PO SCH (09:32)
[2019-05-20] MEDS: OSELTAMIVIR PHOSPHATE 75 MG CAP (TAMIFLU) PO SCH (09:36)
[2019-05-20] MEDS: ESCITALOPRAM OXALATE 10 MG TAB (LEXAPRO) PO SCH (09:37)
[2019-05-20] MEDS: FENOFIBRATE 145 MG TAB (TRICOR) PO SCH (09:39)
[2019-05-20] MEDS: TAMSULOSIN 0.4 MG CAP PO SCH (09:40)
[2019-05-20] MEDS: HEPARIN SOD (PORCINE) 5000 UNITS/ML VIAL (J1644 PER 1000UNITS) SC SCH ×2 (09:41→20:25)
--- NOTE | 2019-05-20 11:05 | IPNPDOC ---
Text Note Date of Service The patient was seen on 05/20/19. NOTE Subjective Chief Complaint/HPI Mr. Sheffield is an 83 year old male who was admitted after a fall and subsequent non-displaced fracture of the L distal fibular. Pt is seen sitting up in bed this morning. He reported he is doing fine. He now has a little pain in his L ankle/foot, taking Tylenol relieves the discomfort. He is scheduled to have his cast placed by ortho this afternoon. Objective Physical Examination General Exam: Positive: Alert, Cooperative, No Acute Distress Eye Exam: Positive: PERRLA, Conjunctiva & lids normal, EOMI; Negative: Sclera icteric ENT Exam: Positive: Atraumatic, Mucous membr. moist/pink, Pharynx Normal Neck Exam: Positive: Supple; Negative: JVD, thyromegaly Chest Exam: Positive: Wheezing; Heart Exam: Positive: Rate Normal, Murmurs (2/6 SM with S1S2 intact ); Negative: Gallops, Rubs Telemetry: Positive: No significant arrhythmia Abdomen Exam: Positive: Normal bowel sounds, Soft; Negative: Tenderness Extremity Exam: Positive: Other (casting L ankle, mild swelling ); Negative: Clubbing, Cyanosis Skin Exam: Positive: Nl turgor and temperature Neuro Exam: Positive: Normal Speech, Cranial Nerves 3-12 NL Psych Exam: Positive: Mental status NL (patient has advanced dementia), Mood NL; Negative: Oriented x 3 Assessment /Plan Assessment Mr. Sheffield is an 83 year old male who was admitted after a fall and subsequent non-displaced fracture of the L distal fibular. 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 Per family, pt was d iagnosed with influenza at urgent care prior to his fall; per family, pt fell once they returned home due to weakness in his legs. Ankle, complete LEFT Impression: Oblique nondisplaced fracture of the distal fibular metadiaphysis with soft tissue swelling. Chest, 1 view Impression: Bibasilar atelectasis suggested. Nondisplaced Fx of the left distal fibular - soft cast over L ankle placed in ED; L leg elevated - seen by Dr. Handy; NWB, keep splint in place - casting today per ortho - continue Tylenol q6hrs for pain Influenza - Completes Tamiflu 05/21/19 - Tylenol prn fever T2D - hold all PO anti-glycemics - ISS with FBS achs HTN - controlled, no home medications at this time. BPH - continue Flomax Dementia with Depression - advanced dementia, probably untreated due to advanced stage - continue Escitalopram for depression Vitamin B12 def. - continue supplement Hypothyroidism - continue Synthroid Plan/VTE VTE Prophylaxis Ordered?: Yes (Heparin ) Disposition: Discharge to [facility] for rehab 24-48hrs. IKt, have independently examined this patient and performed my own physical exam, as well as reviewed the documentation and edited where necessary. I have discussed in detail with the nurse practitioner the findings and plan of treatment as documented by the nurse practitioner . I will continue to follow the patient during this hospital stay. VS,Fishbone, I+O VS, Fishbone, I+O Vital Signs Date Time Temp Pulse Resp B/P (MAP) Pulse Ox O2 Delivery O2 Flow Rate FiO2 05/20/19 08:00 97.2 78 20 134/78 (96) 97 Nasal Cannula 2.0 I&O- Last 24 Hours up to 6 AM 05/20/19 05:59 Intake Total 720 ml Output Total 651 ml Balance 69 ml JOCELYN MILLS PA-C May 20, 2019 11:05 KT ZARATE DO May 20, 2019 18:36
[2019-05-20 14:00] VITALS: BP 132/76
[2019-05-20 21:45] VITALS: BP 152/82
[2019-05-21] MEDS: OSELTAMIVIR PHOSPHATE 75 MG CAP (TAMIFLU) PO SCH ×2 (05:29→13:31)
[2019-05-21] MEDS: LEVOTHYROXINE 88MCG TABLET (0.088 MG) PO SCH (05:29)
[2019-05-21 05:31] VITALS: BP 150/88
[2019-05-21] MEDS: CYANOCOBALAMIN 500 MCG TAB PO SCH (08:14)
[2019-05-21] MEDS: TAMSULOSIN 0.4 MG CAP PO SCH (08:14)
[2019-05-21] MEDS: HumaLOG INSULIN (NovoLOG) PER UNIT SC SCH ×2 (08:14→12:00)
[2019-05-21] MEDS: ESCITALOPRAM OXALATE 10 MG TAB (LEXAPRO) PO SCH (08:15)
[2019-05-21] MEDS: HEPARIN SOD (PORCINE) 5000 UNITS/ML VIAL (J1644 PER 1000UNITS) SC SCH (08:15)
[2019-05-21] MEDS: FENOFIBRATE 145 MG TAB (TRICOR) PO SCH (08:15)
[2019-05-21] MEDS: FLUTICASONE PROP 0.05% NASAL SPRAY 16 GM (FLONASE) NARES SCH (08:16)
--- NOTE | 2019-05-21 13:41 | DS.PDOC ---
Discharge Summary General Date of Admission May 17, 2019 at 20:31 Date of Discharge 05/21/2019 Discharge Summary PROCEDURES PERFORMED DURING STAY: [None]. ADMITTING DIAGNOSES: 1. Influenza 2. Closed fracture of left distal fibula 3. Weakness 4. Diabetes mellitus type II in obesity DISCHARGE DIAGNOSES: 1. Nondisplaced Fx of the left distal fibular 2. Influenza 3. Diabetes mellitus type II 4. Hypertension 5. BPH 6. Dementia with Depression 7. Vitamin B12 deficiency 8. Hypothyroidism COMPLICATIONS/CHIEF COMPLAINT: Closed Fracture Of Lt Distal Fibula,Dm Type 2;Flu. HISTORY OF PRESENT ILLNESS: "Patient is 83 years old male with past medical history of type 2 diabetes, hypertension, dementia, morbid obesity presented hospital after mechanical fall. According to his family member patient was diagnosed earlier today with influenza in urgent care, when they came home he developed mechanical fall due to legs weakness. In ER patient was found to have left distal tibial fracture, nondisplaced, splint was placed. Also patient has been complaining on the muscle soreness, fatigue and cough for past 2 days. Patient doesn't have leukocytosis, creatinine phosphokinase 450. Patient denied fever, chest pain, nausea vomiting, palpitations, diarrhea." HOSPITAL COURSE: Pt was admitted as noted above. Orthopedics consulted: Continue with splint until swelling improved, then cast. Pt to be NWB. Mr. Sheffield completed his Tamiflu therapy. Pt was switched to ALC status and casted per ortho 05/20/19. He was medically optimized and d/c to [facility] for physical rehab. DISCHARGE MEDICATIONS: Please see below. ALLERGIES: Please see below. PHYSICAL EXAMINATION ON DISCHARGE: VITAL SIGNS: Please see below. General Exam: Positive: Alert, Cooperative, No Acute Distress Eye Exam: Positive: PERRLA, Conjunctiva & lids normal, EOMI; Negative: Sclera icteric ENT Exam: Positive: Atraumatic, Mucous membr. moist/pink, Pharynx Normal Neck Exam: Positive: Supple; Negative: JVD, thyromegaly Chest Exam: Positive: Wheezing; Heart Exam: Positive: Rate Normal, Murmurs (2/6 SM with S1S2 intact ); Negative: Gallops, Rubs Telemetry: Positive: No significant arrhythmia Abdomen Exam: Positive: Normal bowel sounds, Soft; Negative: Tenderness Extremity Exam: Positive: Other (casting L ankle, mild swelling over the toes); Negative: Clubbing, Cyanosis Skin Exam: Positive: Nl turgor and temperature Neuro Exam: Positive: Normal Speech, Cranial Nerves 3-12 NL Psych Exam: Positive: Mental status NL (patient has advanced dementia), Mood NL; Negative: Oriented x 3 LABORATORY DATA: Please see below. IMAGING: Ankle, complete LEFT Impression: Oblique nondisplaced fracture of the distal fibular metadiaphysis with soft tissue swelling. Chest, 1 view Impression: Bibasilar atelectasis suggested. ACTIVITY: per rehab DIET: Regular DISCHARGE PLAN: Discharge to [facility] for rehab. Eventual custodial placement. DISPOSITION: Discharge to [facility]. DISCHARGE INSTRUCTIONS: 1. see above ITEMS TO FOLLOWUP ON ON OUTPATIENT: 1. see above DISCHARGE CONDITION: [Stable]. TIME SPENT ON DISCHARGE: 32 minutes Vital Signs/I&Os Vital Signs Date Time Temp Pulse Resp B/P (MAP) Pulse Ox O2 Delivery O2 Flow Rate FiO2 05/21/19 05:31 98.7 77 19 150/88 (108) 96 Nasal Cannula 2.0 I&O- Last 24 Hours up to 6 AM 05/21/19 06:00 Intake Total 1670 ml Output Total 876 ml Balance 794 ml Laboratory Data Labs 24H Laboratory Tests 2 05/20/19 17:20: Bedside Glucose (Misc Panel) 122H 05/20/19 20:28: Bedside Glucose (Misc Panel) 154H 05/21/19 05:32: Bedside Glucose (Misc Panel) 125H 05/21/19 11:38: Bedside Glucose (Misc Panel) 101 FSBS Laboratory Tests Test 05/20/19 17:20 05/20/19 20:28 05/21/19 05:32 05/21/19 11:38 Range/Units Bedside Glucose (Misc Panel) 122 154 125 101 83-110 MG/DL Discharge Medications Scheduled Cyanocobalamin (Vitamin B-12) (Vitamin B-12) 1,000 Mcg Tab, 1,000 MCG PO DAILY, (Reported) Escitalopram Oxalate (Lexapro) 20 Mg Tablet, 20 MG PO DAILY, (Reported) Fenofibrate Nanocrystallized (Fenofibrate) 145 Mg Tablet, 145 MG PO DAILY, (Reported) Fluticasone Propionate (Flonase Allergy Relief) 9.9 Ml [place].susp, 2 SPRAY NARES DAILY Levothyroxine Sodium (Levothyroxine Sodium) 88 Mcg Tablet, 88 MCG PO DAILY, (Reported) Metformin HCl (Metformin HCl) 500 Mg Tablet, 500 MG PO BID, (Reported) Oseltamivir Phosphate (Oseltamivir Phosphate) 75 Mg Capsule, 75 MG PO BID, (Reported) Sitagliptin Phosphate (Januvia) 100 Mg Tab, 100 MG PO DAILY, (Reported) Tamsulosin HCl (Flomax) 0.4 Mg Cap, 0.8 MG PO QAM, (Reported) Allergies Coded Allergies: atorvastatin (Verified Allergy, Unknown, 05/06/19) gemfibrozil (Verified Allergy, Unknown, 05/06/19) niacin (Verified Allergy, Unknown, 05/06/19) Opioids - Morphine Analogues (Verified Adverse Reaction, Intermediate, Delirium, 05/17/19) alprazolam (Verified Adverse Reaction, Intermediate, delirium, 05/06/19) hydrocodone (Verified Adverse Reaction, Intermediate, delirium, 05/06/19) JOCELYN MILLS PA-C May 21, 2019 13:41
== END 2019-05-21 14:30 | DRG 563 ==
LOC: M ED 17:14 → M ED INP 20:31 → ENRESERVTM 21:11 → ENRESERVDT 21:11 → M MS5PR 21:50
PROVIDERS: ADMIT Internal Medicine; ATTEND Internal Medicine
DX: S82.302A Unspecified fracture of lower end of left tibia, initial encounter for closed fracture (principal); F03.90 Unspecified dementia, unspecified severity, without behavioral disturbance, psychotic disturbance, mood disturbance, and anxiety; W01.0XXA Fall on same level from slipping, tripping and stumbling without subsequent striking against object, initial encounter; Y92.012 Bathroom of single-family (private) house as the place of occurrence of the external cause; E11.9 Type 2 diabetes mellitus without complications; I10 Essential (primary) hypertension; E66.01 Morbid (severe) obesity due to excess calories; Z68.30 Body mass index [BMI] 30.0-30.9, adult; J11.1 Influenza due to unidentified influenza virus with other respiratory manifestations; Z79.84 Long term (current) use of oral hypoglycemic drugs; Z79.899 Other long term (current) drug therapy; Z88.5 Allergy status to narcotic agent; Z88.8 Allergy status to other drugs, medicaments and biological substances; R53.1 Weakness; N40.0 Benign prostatic hyperplasia without lower urinary tract symptoms; E03.9 Hypothyroidism, unspecified; F32.9 Major depressive disorder, single episode, unspecified; E78.00 Pure hypercholesterolemia, unspecified; L40.9 Psoriasis, unspecified; Z85.46 Personal history of malignant neoplasm of prostate

== ENCOUNTER → 2019-05-24 | Outpatient (REF) ==
[~2019-05-24] MED LIST changes: +DOXY100C37 PO; +OSEL75CA2 PO
[2019-05-24 08:45] LABS: HEMATOCRIT 39.9 % (42.0-52.0); HEMOGLOBIN 13.4 g/dl (13.5-17.5); MEAN CORPUSCULAR HEMOGLOBIN 29.8 pg (27.0-33.0); MEAN CORPUSCULAR HGB CONC 33.6 g/dl (32.0-36.5); MEAN CORPUSCULAR VOLUME 88.9 fl (80.0-96.0); PLATELET COUNT, AUTOMATED 191 10^3/uL (150-450); RED BLOOD COUNT 4.49 10^6/uL (4.30-6.10); WHITE BLOOD COUNT 6.4 10^3/uL (4.0-10.0)
[2019-05-24 09:09] LABS: ALBUMIN 3.7 GM/DL (3.2-5.2); ALT/SGPT 46 U/L (12-78); BILIRUBIN,TOTAL 0.5 MG/DL (0.2-1.0); BLOOD UREA NITROGEN 29 MG/DL (7-18); CALCIUM LEVEL 10.6 MG/DL (8.8-10.2); CARBON DIOXIDE LEVEL 30 MEQ/L (21-32); CHLORIDE LEVEL 106 MEQ/L (98-107); CREATININE FOR GFR 0.95 MG/DL (0.70-1.30); GLOMERULAR FILTRATION RATE > 60.0 (>35); GLUCOSE, FASTING 121 MG/DL (70-100); POTASSIUM SERUM 4.8 MEQ/L (3.5-5.1); SODIUM LEVEL 139 MEQ/L (136-145); TOTAL PROTEIN 6.7 GM/DL (6.4-8.2)
[2019-05-24 10:03] LABS: VITAMIN B12 LEVEL 1435 PG/ML (247-911)
[2019-05-24 10:06] LABS: HEMOGLOBIN A1c 5.9 %
== END ==
LOC: SKLAB2 07:13
PROVIDERS: ATTEND Internal Medicine
DX: D64.9 Anemia, unspecified (principal)

== ENCOUNTER → 2019-08-17 | Outpatient (CLI) | payer MEDICARE, OTHER ==
[~2019-08-17] MED LIST changes: -METF-791 PO; +METF-838 PO
--- NOTE | 2019-08-17 15:41 | REP ---
REASON: Pain and swelling. DEEP VENOUS ULTRASONOGRAPHY LEFT THIGH, RULE OUT DVT: TECHNIQUE: Multiple ultrasonographic images of the deep venous structures of the thigh were obtained from the common femoral vein to the popliteal vein along with Doppler interrogation and color flow Doppler images. FINDINGS: There is no abnormal echogenic material seen within any of the visualized deep venous structures that would suggest acute thrombosis. Coaptation is unremarkable throughout. Doppler interrogation shows an expected response to respiratory variability and augmentation. The color flow images show what appears to be a normal vascular pattern throughout. IMPRESSION: There is no ultrasonographic evidence of deep venous thrombosis involving any of the visualized deep venous structures of the left thigh, as described above. Electronically Signed by Stephen Johnson DO 08/17/2019 04:05 P
== END ==
LOC: M RAD 14:51
PROVIDERS: ATTEND Physician Assistant Surgical
DX: M79.662 Pain in left lower leg (principal)

== ENCOUNTER → 2019-10-19 | Outpatient (CLI) | payer MEDICARE, OTHER | LOC: M PLALAB 13:05 | PROVIDERS: ATTEND Urology | DX: C61 Malignant neoplasm of prostate (principal) ==

== ENCOUNTER → 2020-03-20 | Outpatient (REF) | payer MEDICARE, OTHER ==
[2020-03-22 08:09] LABS: LDL DIRECT 94 mg/dL (0-99)
== END ==
LOC: M LAB REF 16:24
PROVIDERS: ATTEND Internal Medicine
DX: E78.2 Mixed hyperlipidemia (principal)

== ENCOUNTER → 2020-05-29 | Outpatient (REF) | payer MEDICARE, OTHER | LOC: M PLALAB 13:04 | PROVIDERS: ATTEND Nurse Practitioner Women's Health | DX: Z85.46 Personal history of malignant neoplasm of prostate (principal) ==

== ENCOUNTER → 2020-09-15 | Outpatient (CLI) | payer MEDICARE, OTHER ==
[~2020-09-15] MED LIST changes: -DOXY100C37 PO; +DOXY1CAP62 PO
--- NOTE | 2020-09-15 14:18 | REP ---
INDICATION: PAIN. COMPARISON: None. TECHNIQUE: Four views FINDINGS: Moderate asymmetric intra digital joint space narrowing is seen involving all intra digital joints. There is mild marginal osteophytosis seen involving all intra digital joints particularly the interphalangeal joint of the 1st digit and DIP joint of the 3rd. There are no marginal erosions. There is no periarticular osteopenia. There is no evidence of an acute fracture, dislocation, or subluxation. Chronic degenerative changes are seen involving the wrist particularly the 1st carpometacarpal joint. IMPRESSION: Chronic changes as described above. <Electronically signed by Stephen Johnson > 09/15/20 0528
== END ==
LOC: M WUC 13:05
PROVIDERS: ATTEND Physician Assistant
DX: M79.641 Pain in right hand (principal)